=== PATIENT | female | born 1950 | race Caucasian/White ===

== ENCOUNTER 2017-12-31 19:01 | Emergency (ER) | payer MEDICARE, OTHER ==
--- NOTE | 2017-12-31 19:13 | PDOC ---
History of Present Illness - General Stated Complaint: ELEVATED BLOOD PRESSURE Time Seen by Provider: 12/31/17 19:13 - History of Present Illness Initial Comments: 12/31/17 19:14 Ms. Beasley is a 67 yo female w/ pmh of HTN, HLD, CAD, NIDDM, 3 lumbar disc herniations and a CABG (2015) who presents c/o an 8 hour history of head "pressure" that she reports started after she took her insulin this morning. She believes her blood sugar has been too low today as well as it was in the 70's and is normally around 170. When EMS arrived her BP was noted to be in the 170's as well which she reports is much higher than her normal level. The patient denies chest pain, shortness of breath, headache and dizziness. Denies fever, chills, nausea, vomit, diarrhea and constipation. Denies dysuria, frequency, urgency and hematuria. Allergies: Vancomycin Past History - Past Medical History Allergies/Adverse Reactions: Allergies Allergy/AdvReac Type Severity Reaction Status Date / Time vancomycin AdvReac Mild Itching Verified 09/07/16 17:09 Home Medications: Ambulatory Orders Aspirin Coated [Ecotrin -] 81 mg PO DAILY #0 tablet.ec 07/09/13 Atorvastatin Ca [Lipitor] 80 mg PO HS 04/02/16 Gabapentin [Neurontin] 600 mg PO BID 04/02/16 Insulin Aspart [Novolog] 0 unit SQ TID 04/02/16 Insulin Glargine,Hum.rec.anlog [Lantus Solostar PEN (NF)] 0 units SQ HS Metoprolol Tartrate 25 mg PO DAILY 04/02/16 Cephalexin [Keflex] 500 mg PO BID #10 capsule 09/07/16 Diazepam [Valium] 2 mg PO TID PRN #14 tablet MDD 12mg 09/07/16 Naproxen [Naprosyn -] 500 mg PO BID PRN #14 tablet 09/07/16 Cephalexin [Keflex] 500 mg PO BID #14 capsule 12/31/17 Cardiac Disorders: Yes (Open heart sx 11/2015.) Diabetes: Yes HTN: Yes Hypercholesterolemia: Yes Kidney Stones: No - Surgical History Appendectomy: Yes Cardiac Surgery: Yes (3 vessel CABG 12/08/15) Cholecystectomy: Yes - Immunization History Immunization Up to Date: Yes - Suicide/Smoking/Psychosocial Hx Smoking Status: Yes Smoking History: Former smoker Have you smoked in the past 12 months: No Number of Cigarettes Smoked Daily: 20 If you are a former smoker, when did you quit?: 2 YRS 'Breaking Loose' booklet given: 01/06/16 Hx Alcohol Use: No Drug/Substance Use Hx: No Substance Use Type: None Hx Substance Use Treatment: No Review of Systems - Review of Systems Comments:: 12/31/17 20:22 GENERAL/CONSTITUTIONAL: No fever or chills. No weakness. HEAD, EYES, EARS, NOSE AND THROAT: +Head "pressure" as described CARDIOVASCULAR: No chest pain or shortness of breath RESPIRATORY: No cough, wheezing, or hemoptysis. GASTROINTESTINAL: No nausea, vomiting, diarrhea or constipation. GENITOURINARY: No dysuria, frequency, or change in urination. MUSCULOSKELETAL: No joint or muscle swelling or pain. No neck or back pain. SKIN: No rash NEUROLOGIC: No headache, vertigo, loss of consciousness, or change in strength/ sensation. ENDOCRINE: No increased thirst. No abnormal weight change HEMATOLOGIC/LYMPHATIC: No anemia, easy bleeding, or history of blood clots. ALLERGIC/IMMUNOLOGIC: No hives or skin allergy. *Physical Exam - Physical Exam Comments: 12/31/17 20:23 GENERAL: Awake, alert, and fully oriented, in no acute distress HEAD: No signs of trauma, normocephalic, atraumatic EYES: PERRLA, EOMI, sclera anicteric, conjunctiva clear ENT: Auricles normal inspection, hearing grossly normal, nares patent, oropharynx clear without exudates. Moist mucosa NECK: Normal ROM, supple, no lymphadenopathy, JVD, or masses LUNGS: No distress, speaks full sentences, clear to auscultation bilaterally HEART: Regular rate and rhythm, normal S1 and S2, no murmurs, rubs or gallops, peripheral pulses normal and equal bilaterally. ABDOMEN: Soft, nontender, normoactive bowel sounds. No guarding, no rebound. No masses EXTREMITIES: Normal inspection, Normal range of motion, no edema. No clubbing or cyanosis. NEUROLOGICAL: Cranial nerves II through XII grossly intact. Normal speech, normal gait, no focal sensorimotor deficits SKIN: Warm, Dry, normal turgor, no rashes or lesions noted. ED Treatment Course - LABORATORY CBC & Chemistry Diagram: 12/31/17 20:22 12/31/17 20:22 Medical Decision Making - Medical Decision Making 12/31/17 20:50 Ms. Beasley is a 67 yo female w/ pmh as described presenting w/ elevated BP. Upon re-interview patient admits to eating corned beef earlier today which she believes may have elevated her BP. 12/31/17 21:26 UA positive for 3+ leukocytes - ABX begun for treatment in ED w/ Rx sent to patient's pharmacy. Head CT negative for acute pathology. CXR likewise negative. Labs otherwise unconcerning as below. Will d/c to home with instructions to f/u as needed for further symptoms. Patient verbalized understanding and agreement of plan and will comply. Laboratory Results - last 24 hr 12/31/17 12/31/17 12/31/17 20:22 20:22 20:22 WBC 9.0 RBC 5.26 H Hgb 14.2 Hct 43.0 MCV 81.7 MCH 27.0 MCHC 33.1 RDW 13.8 Plt Count 315 MPV 8.2 Neutrophils % 56.0 Lymphocytes % 36.1 Monocytes % 6.1 Eosinophils % 1.2 Basophils % 0.6 Sodium 142 Potassium 3.7 Chloride 106 Carbon Dioxide 30 Anion Gap 6 L BUN 14 Creatinine 0.8 Creat Clearance w eGFR > 60 Random Glucose 72 L Calcium 8.6 Total Bilirubin 0.8 D AST 21 ALT 28 Alkaline Phosphatase 166 H Creatine Kinase 213 H Creatine Kinase Index 1.1 CK-MB (CK-2) 2.347 Troponin I < 0.02 Total Protein 7.2 Albumin 3.4 Urine Color Urine Appearance Urine pH Ur Specific Harrison Urine Protein Urine Glucose (UA) Urine Ketones Urine Blood Urine Nitrite Urine Bilirubin Urine Urobilinogen Ur Leukocyte Esterase Urine WBC (Auto) Urine RBC (Auto) Ur Epithelial Cells 12/31/17 01/01/18 20:44 02:14 WBC RBC Hgb Hct MCV MCH MCHC RDW Plt Count MPV Neutrophils % Lymphocytes % Monocytes % Eosinophils % Basophils % Sodium Potassium Chloride Carbon Dioxide Anion Gap BUN Creatinine Creat Clearance w eGFR Random Glucose Calcium Total Bilirubin AST ALT Alkaline Phosphatase Creatine Kinase 193 H Creatine Kinase Index 0.9 CK-MB (CK-2) 1.913 Troponin I < 0.02 Total Protein Albumin Urine Color Ltyellow Urine Appearance Clear Urine pH 8.0 D Ur Specific Harrison 1.008 Urine Protein Negative Urine Glucose (UA) Negative Urine Ketones Negative Urine Blood Negative Urine Nitrite Negative Urine Bilirubin Negative Urine Urobilinogen Negative Ur Leukocyte Esterase 3+ H Urine WBC (Auto) 64 Urine RBC (Auto) 1 Ur Epithelial Cells Rare *DC/Admit/Observation/Transfer Diagnosis at time of Disposition: Urinary tract infection Qualifiers: Urinary tract infection type: site unspecified Hematuria presence: with hematuria Qualified Code(s): N39.0 - Urinary tract infection, site not specified - Discharge Dispostion Disposition: HOME - Prescriptions Prescriptions: Cephalexin [Keflex] 500 mg PO BID #14 capsule - Referrals Referrals: Salma Reddy [Primary Care Provider] - - Patient Instructions Printed Discharge Instructions: DI for Urinary Tract Infection (UTI) Additional Instructions: Please return if any pain, fever, or other concerning symptoms. Take prescription as written. Follow-up with your primary care provider for further evaluation as needed. - Post Discharge Activity
[2017-12-31 20:02] VITALS: BMI 29.9
[2017-12-31] MEDS ORDERED: ACETAMINOPHEN 500 MG TABLET (FP) PO ONE (20:16)
[2017-12-31] MEDS ORDERED: ACETAMINOPHEN 325 MG TABLET (FP) ONE (20:20)
[2017-12-31] MEDS ORDERED: NITROGLYCERIN SUBLINGUAL 1/150 0.4 MG TAB SL ONE (20:20)
[2017-12-31] MEDS ORDERED: NITROGLYCERIN SUBLINGUAL 1/150 0.4 MG TAB ONE (20:45)
[2017-12-31] MEDS ORDERED: VALSARTAN 40 MG TABLET (FP) PO ONE (20:46)
--- NOTE | 2017-12-31 20:51 | PDOC ---
Attending Attestation - Resident Resident Name: Cj Gabriel - ED Attending Attestation I have performed the following: I have examined & evaluated the patient, The case was reviewed & discussed with the resident, I agree w/resident's findings & plan - HPI HPI: 12/31/17 20:44 Pt comes with HTN and fever and headache. She was unaware that she is febrile. - Physicial Exam PE: 12/31/17 20:45 Agree with resident. Bilat BP is equal 12/31/17 20:52 Temp is normal - Medical Decision Making 12/31/17 20:[address] head pending. 12/31/17 22:40 Patient Name: ISABEL BRYANT THIS IS A PRELIMINARY REPORT FROM [facility] DATE OF SERVICE: 2017-12-31 21:01:51 IMAGES: 141 EXAM: CT head without contrast HISTORY: 67 year old female hypertension, headache. COMPARISON: None. FINDINGS: No acute intracranial hemorrhage mass effect or midline shift. Templeton-white differentiation is maintained. Ventricles sulci and basilar cisterns appear unremarkable. Calvarium is intact. The sinuses and mastoid air cells are clear. IMPRESSION No acute intracranial hemorrhage mass effect or midline shift. This CT exam was performed using one or more of the following dose reduction techniques: automated exposure control, adjustment of the mA and/or kV according to patient size, use of iterative reconstruction technique. THIS DOCUMENT HAS BEEN ELECTRONICALLY SIGNED 12/31/17 22:51 Pt comes with uncontrolled HTN and headache. SHe is compliant with her meds and she is not sure why this is happening. She is warm to the touch, but rectal temp is normal. Pt has normal labs and a normal EKG and a normal head CT scan. 01/01/18 02:05 CT head nornal; CXR normal (pt has sternal wires from previous CABG abd GB cassidy from prior cholecystectomy. Labs normal; pt stable to go home.
[2017-12-31 20:58] LABS: URINE APPEARANCE CLEAR; URINE BILIRUBIN NEGATIVE (NEGATIVE); URINE BLOOD NEGATIVE (NEGATIVE); URINE COLOR LTYELLOW; URINE GLUCOSE (UA) NEGATIVE (NEGATIVE); URINE KETONE NEGATIVE (NEGATIVE); URINE NITRITE NEGATIVE (NEGATIVE); URINE PROTEIN NEGATIVE (NEGATIVE); URINE UROBILINOGEN NEGATIVE mg/dL (0.2-1.0)
[2017-12-31 21:00] LABS: BASO % 0.6 % (0-2.0); EOS % 1.2 % (0-4.5); HEMOGLOBIN 14.2 GM/dL (10.7-15.3); LYMPH % 36.1 % (8-40); MCHC 33.1 g/dl (32.0-36.0); MEAN CELL VOLUME 81.7 fl (80-96); MEAN PLT VOLUME 8.2 fl (7.5-11.1); MONO % 6.1 % (3.8-10.2); PLATELET COUNT 315 K/MM3 (134-434); RBC 5.26 M/mm3 (3.60-5.2); RDW 13.8 % (11.6-15.6)
[2017-12-31 21:05] LABS: URINE LEUK ESTERASE 3+ (NEGATIVE)
[2017-12-31] MEDS ORDERED: cefTRIAXone 1 GM/50 ML BAG (PRE-DOCKED) IVPB ONE (21:07)
[2017-12-31 21:08] LABS: EPI CELLS RARE /HPF (FEW)
[2017-12-31] MEDS ORDERED: VALSARTAN 80 MG TABLET (UD) ONE (21:12)
[2017-12-31 21:34] LABS: ALBUMIN 3.4 g/dl (3.4-5.0); ANION GAP 6 (8-16); BLOOD UREA NITROGEN 14 mg/dL (7-18); CALCIUM 8.6 mg/dL (8.5-10.1); CHLORIDE 106 mmol/L (98-107); CO2 30 mmol/L (21-32); CREATININE 0.8 mg/dL (0.55-1.02); GLUCOSE,RANDOM 72 mg/dL (74-106); POTASSIUM 3.7 mmol/L (3.5-5.1); SGOT/AST 21 U/L (15-37); SGPT/ALT 28 U/L (12-78); SODIUM 142 mmol/L (136-145)
[2017-12-31 21:35] LABS: ALK PHOS 166 U/L (45-117); BILIRUBIN,TOTAL 0.8 mg/dL (0.2-1.0); TOT PROT 7.2 g/dl (6.4-8.2)
[2017-12-31] MEDS ORDERED: CEFTRIAXONE 1 GM/50 ML BAG ONE (23:11)
[2018-01-01] MEDS ORDERED: IBUPROFEN 600 MG TABLET (FP) PO ONE ×2 (02:16→02:28)
[2018-01-01 02:33] VITALS: BP 136/70; PULSE 74; TEMP 98.1
--- NOTE | 2018-01-01 23:17 | EKG ---
Test Reason : Blood Pressure : / mmHG Vent. Rate : 081 BPM Atrial Rate : 081 BPM P-R Int : 166 ms QRS Dur : 134 ms QT Int : 420 ms P-R-T Axes : 060 022 048 degrees QTc Int : 487 ms NORMAL SINUS RHYTHM POSSIBLE LEFT ATRIAL ENLARGEMENT RIGHT BUNDLE BRANCH BLOCK ABNORMAL ECG WHEN COMPARED WITH ECG OF 21-JUN-2016 21:08, CRITERIA FOR ANTERIOR INFARCT ARE NO LONGER PRESENT NO SIGNIFICANT CHANGE WAS FOUND Confirmed by GHASSAN IBARRA, JAYDEN ([id number]) on 01/01/2018 11:17:44 PM Referred By: Confirmed By:JAYDEN FERRELL MD
== END 2018-01-01 03:14 | disposition home or self-care (01) ==
LOC: JER 19:01
DX: N39.0 Urinary tract infection, site not specified (principal); I25.810 Atherosclerosis of coronary artery bypass graft(s) without angina pectoris; I10 Essential (primary) hypertension; Z95.1 Presence of aortocoronary bypass graft; E11.9 Type 2 diabetes mellitus without complications; Z79.4 Long term (current) use of insulin; E78.00 Pure hypercholesterolemia, unspecified; M51.26 Other intervertebral disc displacement, lumbar region
CPT/HCPCS: 36415; 70450-TC; 71046-TC-FY; 80053; 81003; 81015; 82550; 82553; 84484; 85025; 93005; 93010; 96374; 99282-25

== ENCOUNTER 2019-03-28 11:42 | Emergency (ER) | payer MEDICARE, OTHER ==
[2019-03-28 12:05] VITALS: BP 146/76; PULSE 75; TEMP 97.8; BMI 28.3
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
[2019-03-28] MEDS ORDERED: IBUPROFEN 600 MG TABLET (FP) PO ONE ×2 (12:34→12:38)
== END 2019-03-28 13:43 | disposition home or self-care (01) ==
LOC: JERFT 11:42
PROC: 2W3DX1Z Immobilization of Left Lower Arm using Splint (ICD-10-PCS; principal; 2019-03-28)
DX: M79.642 Pain in left hand (principal); M25.532 Pain in left wrist; V03.10XA Pedestrian on foot injured in collision with car, pick-up truck or van in traffic accident, initial encounter; Y92.414 Local residential or business street as the place of occurrence of the external cause; Y93.89 Activity, other specified; Y99.8 Other external cause status; I25.10 Atherosclerotic heart disease of native coronary artery without angina pectoris; I10 Essential (primary) hypertension; Z95.1 Presence of aortocoronary bypass graft; E78.00 Pure hypercholesterolemia, unspecified; E11.9 Type 2 diabetes mellitus without complications; Z79.84 Long term (current) use of oral hypoglycemic drugs
CPT/HCPCS: 73110-TC-LT-FY; 73130-TC-LT-FY; 99281-25

== ENCOUNTER 2020-06-23 10:35 | Emergency (ER) | payer MEDICARE, OTHER ==
[2020-06-23] MEDS ORDERED: CYCLOBENZAPRINE HCL 10 MG TABLET (FP) PO ONE (11:04)
[2020-06-23] MEDS ORDERED: KETOROLAC TROMETHAMINE 30 MG/1 ML VIAL IM ONE (11:04)
[2020-06-23] MEDS ORDERED: CYCLOBENZAPRINE HCL 10 MG TABLET (FP) ONE (11:10)
[2020-06-23] MEDS ORDERED: KETOROLAC TROMETHAMINE 30 MG/1 ML VIAL ONE (11:10)
[2020-06-23 11:13] VITALS: BMI 32.1
--- NOTE | 2020-06-23 11:28 | PDOC ---
History of Present Illness - General Chief Complaint: Pain, Acute Stated Complaint: BACK PAIN Time Seen by Provider: 06/23/20 10:49 History Source: Patient Exam Limitations: No Limitations - History of Present Illness Initial Comments: 06/23/20 11:23 Patient is a 69-year-old female with a history of hypertension, diabetes, three- vessel CABG who presents to the ED with right mid back pain that she has had for the last 3 days. She states that she remembers turning in a certain direction when the pain started. She states it is deep inside and feels sharp in nature. She is having trouble getting comfortable particularly while laying down. She denies any dysuria or hematuria. She denies any frequency, urgency, hesitancy. She denies any fevers or chills. She denies any chest pain or shortness of breath. She has taken Advil and Aleve over the past 3 days with some relief of her symptoms. She states the pain has returned. She did not take anything today. Past History - Medical History Allergies/Adverse Reactions: Allergies Allergy/AdvReac Type Severity Reaction Status Date / Time vancomycin AdvReac Mild Itching Verified 09/07/16 17:09 Home Medications: Ambulatory Orders Aspirin Coated [Ecotrin -] 81 mg PO DAILY #0 tablet.ec 07/09/13 Atorvastatin Ca [Lipitor] 80 mg PO HS 04/02/16 Gabapentin [Neurontin] 600 mg PO BID 04/02/16 Insulin Aspart [Novolog] 0 unit SQ TID 04/02/16 Insulin Glargine,Hum.rec.anlog [Lantus Solostar PEN (NF)] 0 units SQ HS 04/02/16 Metoprolol Tartrate 25 mg PO DAILY 04/02/16 Cephalexin [Keflex] 500 mg PO BID #10 capsule 09/07/16 Diazepam [Valium] 2 mg PO TID PRN #14 tablet MDD 12mg 09/07/16 Naproxen [Naprosyn -] 500 mg PO BID PRN #14 tablet 09/07/16 Cephalexin [Keflex] 500 mg PO BID #14 capsule 12/31/17 Acetaminophen [Tylenol -] 1,000 mg PO Q6H #30 tablet 03/28/19 Cephalexin [Keflex] 500 mg PO BID #14 capsule 06/23/20 Cardiac Disorders: Yes (Open heart sx 11/2015.) COPD: No Diabetes: Yes HTN: Yes Hypercholesterolemia: Yes Kidney Stones: No - Surgical History Appendectomy: Yes Cardiac Surgery: Yes (3 vessel CABG 12/08/15) Cholecystectomy: Yes - Reproductive History Is Patient Now?: No - Immunization History Immunization Up to Date: Yes - Psycho-Social/Smoking History Smoking Status: Yes Smoking History: Former smoker Have you smoked in the past 12 months: No Number of Cigarettes Smoked Daily: 20 If you are a former smoker, when did you quit?: 2 YRS Information on smoking cessation initiated: No 'Breaking Loose' booklet given: 01/06/16 - Substance Abuse Hx (Audit-C & DAST Scrn) How often the patient has a drink containing alcohol: Never Score: In Men: 4 or > Positive; In Women: 3 or > Positive: 0 Screen Result (Pos requires Nsg. Audit-10AR): Negative In the last yr the pt used illegal drug/Rx for NonMed reason: No Score: Yes response is considered Positive: 0 Screen Result (Positive result requires Nsg. DAST-10): Negative Review of Systems - Review of Systems Comments:: 06/23/20 11:24 - Review of Systems Able to Perform ROS?: Yes Constitutional: No: Fever, Chills, Loss of Appetite, Night Sweats, Weakness HEENTM: No: Eye Pain, Vision changes, Ear Pain, Throat Pain, Throat Swelling, Mouth Pain, Difficulty Swallowing Respiratory: No: Cough, Shortness of Breath, Wheezing, Sputum Production Cardiac (ROS): No: Chest Pain, Chest Tightness, Palpitations, Irregular Heart Beat, Edema ABD/GI: No: Nausea, Vomiting, Abdominal Pain, Diarrhea : No Dysuria, No Hematuria, No Frequency, No Urgency, no vaginal symptoms Musculoskeletal: No: Muscle Pain, Joint Pain, Muscle Weakness, Neck Pain; positive: Right-sided mid back pain Integumentary: No: Lesions, Rash Neurological: No: Headache, Numbness, Tingling, Weakness, Speech Difficulties *Physical Exam - Vital Signs Last Vital Signs Temp Pulse Resp BP Pulse Ox 82 16 180/72 H 99 06/23/20 10:37 06/23/20 10:37 06/23/20 10:37 06/23/20 10:37 - Physical Exam 06/23/20 11:25 - Physical Exam General Appearance: Nourished, Appropriately Dressed, No Distress HEENT: EOMI, Normal Voice, Hearing Grossly Normal Neck: Supple, No Lymphadenopathy (R), No Lymphadenopathy (L), No Rigidity, No Decreased range of motion Respiratory/Chest: Lungs Clear, Normal Breath Sounds. No Respiratory Distress, No Accessory Muscle Use Cardiovascular: Regular Rhythm, Regular Rate, S1, S2 Gastrointestinal/Abdominal: Normal Bowel Sounds, Soft. Non-tender, No Guarding, No Rebound, No Rigidity Musculoskeletal: Normal Inspection. No Decreased Range of Motion; moderate right mid paraspinal back pain which is reproducible to palpation. No CVA tenderness bilaterally. No midline back tenderness to palpation. Tenderness to the sacral region to palpation (of note: Which patient states is from an old injury) Extremity: Normal Capillary Refill, Normal Inspection Integumentary: Normal Color, Dry. No Rash Neurologic: entertainment usher II-XII NML intact, Fully Oriented, Alert, Normal Mood/Affect, Normal Response ED Treatment Course - LABORATORY CBC & Chemistry Diagram: 06/23/20 13:43 06/23/20 13:43 - RADIOLOGY Radiology Studies Ordered: Category Date Time Status SPINE-LUMBAR ONLY [RAD] Stat Radiology 06/23/20 11:03 Ordered SPINE-THORACIC [RAD] Stat Radiology 06/23/20 11:03 Ordered - Medications Given in the ED: ED Medications Discontinued Medications Generic Name Dose Route Start Last Admin Trade Name Freq PRN Reason Stop Dose Admin Cyclobenzaprine HCl 10 mg 06/23/20 11:04 06/23/20 11:17 Flexeril - PO 06/23/20 11:05 10 mg ONCE ONE Administration Ketorolac Tromethamine 30 mg 06/23/20 11:04 06/23/20 11:17 Toradol Injection - IM 06/23/20 11:05 30 mg ONCE ONE Administration Medical Decision Making - Medical Decision Making 06/23/20 11:26 Assessment: Patient is a 69-year-old female with history of hypertension, diabetes, three-vessel CABG who presents with right mid back pain for 3 days. Plan: -UA and urine culture ordered -Thoracic and lumbar spine x-rays ordered -Toradol and Flexeril given -Will reassess 06/23/20 12:45 The patient is still having pain. She is pending her x-ray reads and UA results. 1 Percocet ordered. 06/23/20 14:01 Patient pain has not subsided even with the Percocet. She has evidence of a UTI, possibly a sending. Will order labs for further evaluation. Will give 1g of ceftriaxone in the ED now. 06/23/20 15:12 Patient is got her ceftriaxone. We will send Keflex to her pharmacy. The patient does admit to not taking her blood pressure medication today and she will take it when she gets home. The patient will follow up with her primary doctor within 1 to 2 days for repeat evaluation. She understands and agrees with this treatment plan and she is stable for discharge. Discharge - Discharge Information Problems reviewed: Yes Clinical Impression/Diagnosis: UTI (urinary tract infection) Qualifiers: Urinary tract infection type: acute cystitis Hematuria presence: without hematuria Qualified Code(s): N30.00 - Acute cystitis without hematuria Condition: Stable Disposition: HOME - Additional Discharge Information Prescriptions: Cephalexin [Keflex] 500 mg PO BID #14 capsule - Follow up/Referral Referrals: Maurisio Reddy MD [Primary Care Provider] - Call tomorrow - Patient Discharge Instructions Patient Printed Discharge Instructions: DI for Urinary Tract Infection (UTI) Additional Instructions: Take the antibiotics as prescribed and complete the entire course even if you are feeling better. Take Tylenol or ibuprofen for pain. Get plenty of rest and drink plenty of fluids. Be sure to follow-up with your primary doctor within 1 to 2 days for repeat evaluation. - Post Discharge Activity
[2020-06-23 13:07] LABS: EPI CELLS 9 /uL (0-25.1); HYALINE CASTS 5 /uL (0-3.1); PH,URINE 5.5 (5.0-8.0); URINE APPEARANCE CLOUDY; URINE BILIRUBIN NEGATIVE (NEGATIVE); URINE COLOR YELLOW; URINE GLUCOSE (UA) NEGATIVE (NEGATIVE); URINE KETONE NEGATIVE (NEGATIVE); URINE LEUK ESTERASE 2+ (NEGATIVE); URINE NITRITE POSITIVE (NEGATIVE); URINE PROTEIN 1+ (NEGATIVE); URINE RBC 7 /uL (0-23.9); URINE WBC 178 /uL (0-25.8)
[2020-06-23] MEDS ORDERED: CEFTRIAXONE 1,000 MG in DEXTROSE 5%-WATER - 50 ML IVPB ONE (14:04)
[2020-06-23 14:10] LABS: BASO % 0.7 % (0-2.0); EOS % 0.8 % (0-4.5); HEMATOCRIT 46.4 % (32.4-45.2); HEMOGLOBIN 15.4 GM/dL (10.7-15.3); LYMPH % 32.4 % (8-40); MCH 27.5 pg (25.7-33.7); MCHC 33.1 g/dl (32.0-36.0); MEAN CELL VOLUME 83.1 fl (80-96); MONO % 6.4 % (3.8-10.2); NEUT % 59.7 % (42.8-82.8); PLATELET COUNT 306 K/MM3 (134-434); RBC 5.59 M/mm3 (3.60-5.2); RDW 14.5 % (11.6-15.6)
[2020-06-23 14:32] LABS: ALBUMIN 3.6 g/dl (3.4-5.0); ALK PHOS 157 U/L (45-117); ANION GAP 7 MMOL/L (8-16); BILIRUBIN,TOTAL 0.6 mg/dL (0.2-1); BLOOD UREA NITROGEN 11.7 mg/dL (7-18); CALCIUM 9.3 mg/dL (8.5-10.1); CHLORIDE 106 mmol/L (98-107); CO2 27 mmol/L (21-32); CREATININE 0.8 mg/dL (0.55-1.3); GLUCOSE,RANDOM 110 mg/dL (74-106); POTASSIUM 3.9 mmol/L (3.5-5.1); SGOT/AST 27 U/L (15-37); SGPT/ALT 42 U/L (13-61); SODIUM 140 mmol/L (136-145); TOT PROT 7.6 g/dl (6.4-8.2)
[2020-06-23] MEDS ORDERED: CEFTRIAXONE 1 GM/50 ML BAG ONE (14:49)
[2020-06-23 15:27] VITALS: BP 195/80; PULSE 72; TEMP 98.2
== END 2020-06-23 15:24 | disposition home or self-care (01) ==
LOC: JER 10:35
PROC: 3E033GC Introduction of Other Therapeutic Substance into Peripheral Vein, Percutaneous Approach (ICD-10-PCS; principal; 2020-06-23)
PROC: 3E023GC Introduction of Other Therapeutic Substance into Muscle, Percutaneous Approach (ICD-10-PCS; principal; 2020-06-23)
DX: N30.00 Acute cystitis without hematuria (principal)
CPT/HCPCS: 36415; 72070-TC-FY; 72100-TC-FY; 80053; 81003; 82550; 82553; 84484; 85025; 87086; 87186; 99284-25

== ENCOUNTER 2020-10-22 23:49 | Emergency (ER) | payer MEDICARE, OTHER ==
[2020-10-23 00:28] VITALS: BP 143/59; PULSE 75; TEMP 98; BMI 30.1
[2020-10-23] MEDS ORDERED: LIDOCAINE 5% TOPICAL PATCH TP ONE (01:38)
[2020-10-23] MEDS ORDERED: ACETAMINOPHEN 325 MG TABLET (FP) PO ONE (01:38)
[2020-10-23] MEDS ORDERED: ACETAMINOPHEN 325 MG TABLET (FP) ONE (01:49)
[2020-10-23] MEDS ORDERED: LIDOCAINE 5% TOPICAL PATCH ONE (01:49)
[2020-10-23 02:03] LABS: BASO % 0.6 % (0-2.0); EOS % 1.5 % (0-4.5); HEMATOCRIT 44.4 % (32.4-45.2); HEMOGLOBIN 14.5 GM/dL (10.7-15.3); LYMPH % 36.6 % (8-40); MCH 27.2 pg (25.7-33.7); MCHC 32.7 g/dl (32.0-36.0); MEAN CELL VOLUME 83.3 fl (80-96); MEAN PLT VOLUME 9.3 fl (7.5-11.1); MONO % 7.4 % (3.8-10.2); NEUT % 53.9 % (42.8-82.8); PLATELET COUNT 277 K/MM3 (134-434); RBC 5.34 M/mm3 (3.60-5.2); WHITE BLOOD COUNT 7.6 K/mm3 (4.0-10.0)
[2020-10-23 02:06] LABS: URINE APPEARANCE CLEAR; URINE BILIRUBIN NEGATIVE (NEGATIVE); URINE COLOR YELLOW; URINE GLUCOSE (UA) NEGATIVE (NEGATIVE); URINE KETONE NEGATIVE (NEGATIVE); URINE LEUK ESTERASE NEGATIVE (NEGATIVE); URINE NITRITE NEGATIVE (NEGATIVE); URINE PROTEIN NEGATIVE (NEGATIVE)
[2020-10-23 02:21] LABS: POTASSIUM 3.7 mmol/L (3.5-5.1)
[2020-10-23 02:23] LABS: ALBUMIN 3.6 g/dl (3.4-5.0); BLOOD UREA NITROGEN 11.2 mg/dL (7-18); CALCIUM 8.7 mg/dL (8.5-10.1)
[2020-10-23 02:26] LABS: CREATININE 0.7 mg/dL (0.55-1.3)
[2020-10-23 02:28] LABS: BILIRUBIN,TOTAL 0.4 mg/dL (0.2-1)
[2020-10-23] MEDS ORDERED: KETOROLAC TROMETHAMINE 60 MG/2 ML VIAL IM ONE (03:19)
[2020-10-23] MEDS ORDERED: KETOROLAC TROMETHAMINE 60 MG/2 ML VIAL ONE (03:47)
[2020-10-23] MEDS ORDERED: LIDOCAINE PATCH REMOVAL MC SCH (22:00)
== END 2020-10-23 03:45 | disposition left against medical advice (07) ==
LOC: JER 23:49
PROC: 3E0233Z Introduction of Anti-inflammatory into Muscle, Percutaneous Approach (ICD-10-PCS; principal; 2020-10-23)
DX: M54.9 Dorsalgia, unspecified (principal)
CPT/HCPCS: 36415; 72128-TC; 72131-TC; 80053; 81003; 85025; 87086; 96372; 99285-25

== ENCOUNTER 2020-10-24 13:04 | Emergency (ER) | payer MEDICARE, OTHER ==
[2020-10-24 13:55] VITALS: BMI 30.1
[2020-10-24] MEDS ORDERED: LIDOCAINE 5% TOPICAL PATCH TP ONE (14:29)
[2020-10-24] MEDS ORDERED: KETOROLAC TROMETHAMINE 15 MG/ML VIAL IM ONE (14:29)
[2020-10-24] MEDS ORDERED: METHOCARBAMOL 500 MG TABLET PO ONE (14:54)
[2020-10-24] MEDS ORDERED: METHOCARBAMOL 500 MG TABLET ONE (15:15)
[2020-10-24] MEDS ORDERED: LIDOCAINE 5% TOPICAL PATCH ONE (15:16)
[2020-10-24] MEDS ORDERED: KETOROLAC TROMETHAMINE 30 MG/1 ML VIAL ONE (15:16)
[2020-10-24 16:56] LABS: PH,URINE 5.5 (5.0-8.0); URINE APPEARANCE Clear; URINE BILIRUBIN Negative (NEGATIVE); URINE COLOR Yellow; URINE GLUCOSE (UA) Negative (NEGATIVE); URINE KETONE Trace (NEGATIVE); URINE LEUK ESTERASE Trace (NEGATIVE); URINE NITRITE Negative (NEGATIVE); URINE PROTEIN Negative (NEGATIVE); URINE UROBILINOGEN 0.2 mg/dL (0.2-1.0)
[2020-10-24 17:19] VITALS: BP 161/69; PULSE 68; TEMP 97.9
[2020-10-24] MEDS ORDERED: LIDOCAINE PATCH REMOVAL MC SCH (22:00)
== END 2020-10-24 17:18 | disposition home or self-care (01) ==
LOC: JER 13:04
PROC: 3E0233Z Introduction of Anti-inflammatory into Muscle, Percutaneous Approach (ICD-10-PCS; principal; 2020-10-24)
DX: M54.5 Low back pain (principal)
CPT/HCPCS: 76857; 81003; 82962; 87086; 96372; 99285-25

== ENCOUNTER 2021-06-29 12:21 | Emergency (ER) | payer MEDICARE, OTHER ==
[2021-06-29 12:39] VITALS: BP 157/73; PULSE 83; TEMP 98.1; BMI 32.2
[2021-06-29] MEDS ORDERED: KETOROLAC TROMETHAMINE 60 MG/2 ML VIAL IM ONE (13:01)
[2021-06-29] MEDS ORDERED: ACETAMINOPHEN 500 MG TABLET (FP) PO ONE (13:07)
[2021-06-29] MEDS ORDERED: ACETAMINOPHEN 500 MG TABLET (FP) ONE (13:17)
== END 2021-06-29 14:05 | disposition home or self-care (01) ==
LOC: JERFT 12:21
PROC: 3E023GC Introduction of Other Therapeutic Substance into Muscle, Percutaneous Approach (ICD-10-PCS; principal; 2021-06-29)
DX: M54.5 Low back pain (principal)
CPT/HCPCS: 99284-25

== ENCOUNTER 2022-03-27 14:35 | Emergency (ER) | payer MEDICARE, OTHER ==
[2022-03-27 15:04] VITALS: BMI 32.3
[2022-03-27 16:16] LABS: BASO % 0.6 % (0-2.0); EOS % 0.5 % (0-4.5); HEMATOCRIT 45.3 % (32.4-45.2); HEMOGLOBIN 15.3 GM/dL (10.7-15.3); LYMPH % 19.7 % (8-40); MCH 28.1 pg (25.7-33.7); MCHC 33.7 g/dl (32.0-36.0); MEAN CELL VOLUME 83.4 fl (80-96); MEAN PLT VOLUME 9.1 fl (7.5-11.1); MONO % 5.7 % (3.8-10.2); NEUT % 73.5 % (42.8-82.8); PLATELET COUNT 284 10^3/uL (134-434); RBC 5.43 M/mm3 (3.60-5.2); RDW 13.7 % (11.6-15.6); WHITE BLOOD COUNT 7.7 K/mm3 (4.0-10.0)
[2022-03-27] MEDS ORDERED: ACETAMINOPHEN 500 MG TABLET (FP) PO ONE (16:38)
[2022-03-27 16:40] LABS: CALCIUM 9.2 mg/dL (8.5-10.1)
[2022-03-27 16:41] LABS: ALBUMIN 3.2 g/dl (3.4-5.0); BLOOD UREA NITROGEN 12.8 mg/dL (7-18)
[2022-03-27 16:44] LABS: CREATININE 0.9 mg/dL (0.55-1.3)
[2022-03-27 16:45] LABS: BILIRUBIN,TOTAL 0.8 mg/dL (0.2-1); TOT PROT 7.5 g/dl (6.4-8.2)
[2022-03-27 18:33] VITALS: BP 180/67; PULSE 74
[2022-03-27 18:54] LABS: CALCIUM 9.2 mg/dL (8.5-10.1)
[2022-03-27 18:56] LABS: BLOOD UREA NITROGEN 12.4 mg/dL (7-18)
[2022-03-27 18:58] LABS: CREATININE 0.8 mg/dL (0.55-1.3)
== END 2022-03-27 19:20 | disposition left against medical advice (07) ==
LOC: JER 14:35
DX: R42 Dizziness and giddiness (principal); I10 Essential (primary) hypertension
CPT/HCPCS: 36415; 80048; 80053; 84484; 85025; 93005; 93010; 99284-25

== ENCOUNTER 2022-07-01 12:23 | Emergency (ER) | payer BC, OTHER ==
[2022-07-01 12:35] VITALS: BP 180/84; PULSE 60; RESP 18; TEMP 97.8; BMI 31.2
[2022-07-01] MEDS ORDERED: KETOROLAC TROMETHAMINE 30 MG/1 ML VIAL IM ONE (12:57)
[2022-07-01] MEDS ORDERED: METHOCARBAMOL 500 MG TABLET PO ONE (12:59)
[2022-07-01] MEDS ORDERED: METHOCARBAMOL 500 MG TABLET ONE (13:23)
[2022-07-01] MEDS ORDERED: KETOROLAC TROMETHAMINE 30 MG/1 ML VIAL ONE (13:23)
[2022-07-01 14:44] LABS: PH,URINE 5.5 (5.0-8.0); URINE APPEARANCE CLEAR; URINE BILIRUBIN NEGATIVE (NEGATIVE); URINE COLOR YELLOW; URINE GLUCOSE (UA) 2+ (NEGATIVE); URINE KETONE NEGATIVE (NEGATIVE); URINE LEUK ESTERASE NEGATIVE (NEGATIVE); URINE NITRITE NEGATIVE (NEGATIVE); URINE PROTEIN NEGATIVE (NEGATIVE); URINE UROBILINOGEN 0.2 mg/dL (0.2-1.0)
[2022-07-01] MEDS ORDERED: ACETAMINOPHEN 500 MG TABLET (FP) PO ONE (16:29)
[2022-07-01] MEDS ORDERED: ACETAMINOPHEN 500 MG TABLET (FP) ONE (16:37)
== END 2022-07-01 16:43 | disposition home or self-care (01) ==
LOC: JER 12:23 → JERFT 12:23
PROC: 3E0233Z Introduction of Anti-inflammatory into Muscle, Percutaneous Approach (ICD-10-PCS; principal; 2022-07-01)
DX: M41.86 Other forms of scoliosis, lumbar region (principal); M54.50 Low back pain, unspecified
CPT/HCPCS: 72131-TC; 81003; 87086; 96372; 99285-25

== ENCOUNTER 2022-11-05 07:47 | Observation (INO) | payer BC, OTHER ==
[2022-11-05] MEDS ORDERED: ACETAMINOPHEN 1000 MG/100 ML BAG IVPB ONE (07:59)
[2022-11-05] MEDS ORDERED: ASPIRIN 81 MG CHEWABLE TABLETS PO ONE (08:03)
[2022-11-05] MEDS ORDERED: NITROGLYCERIN SUBLINGUAL 1/150 0.4 MG TAB SL ONE (08:06)
[2022-11-05] MEDS ORDERED: METOPROLOL TARTRATE 50 MG TABLET (FP) PO ONE (08:07)
[2022-11-05] MEDS ORDERED: METOPROLOL TARTRATE 50 MG TABLET (FP) ONE (08:12)
[2022-11-05] MEDS ORDERED: ASPIRIN 81 MG CHEWABLE TABLETS ONE (08:13)
[2022-11-05] MEDS ORDERED: NITROGLYCERIN SUBLINGUAL 1/150 0.4 MG TAB ONE (08:13)
[2022-11-05] MEDS ORDERED: ACETAMINOPHEN INJECTION 100 ML IVPB ONE (08:13)
[2022-11-05 08:35] LABS: VENOUS BASE EXCESS 5.6 mmol/L (-2-2)
[2022-11-05 08:41] LABS: BASO % 0.5 % (0-2.0); EOS % 1.1 % (0-4.5); HEMATOCRIT 47.7 % (32.4-45.2); HEMOGLOBIN 15.8 GM/dL (10.7-15.3); LYMPH % 33.7 % (8-40); MCH 27.5 pg (25.7-33.7); MCHC 33.2 g/dl (32.0-36.0); MEAN PLT VOLUME 8.9 fl (7.5-11.1); MONO % 5.6 % (3.8-10.2); NEUT % 59.1 % (42.8-82.8); PLATELET COUNT 265 10^3/uL (134-434); RBC 5.75 M/mm3 (3.60-5.2); RDW 13.3 % (11.6-15.6); WHITE BLOOD COUNT 6.1 K/mm3 (4.0-10.0)
[2022-11-05 08:44] LABS: EPI CELLS 13 /uL (0-25.1); HYALINE CASTS 0 /uL (0-3.1); PH,URINE 7.5 (5.0-8.0); URINE APPEARANCE CLEAR; URINE BACTERIA 179 /uL (0-1359); URINE BILIRUBIN NEGATIVE (NEGATIVE); URINE COLOR YELLOW; URINE GLUCOSE (UA) 2+ (NEGATIVE); URINE KETONE NEGATIVE (NEGATIVE); URINE LEUK ESTERASE NEGATIVE (NEGATIVE); URINE NITRITE NEGATIVE (NEGATIVE); URINE PROTEIN 1+ (NEGATIVE); URINE RBC 21 /uL (0-23.9); URINE UROBILINOGEN 0.2 mg/dL (0.2-1.0); URINE WBC 3 /uL (0-25.8)
[2022-11-05 08:48] LABS: INR 0.91 (0.83-1.09); PROTHROMBIN TIME (PATIENT) 10.5 SEC (9.7-13.0)
[2022-11-05 08:51] LABS: ACTIVATED PTT 33.1 SECONDS (25.2-36.5)
[2022-11-05 09:03] LABS: CHLORIDE 102 mmol/L (98-107); SODIUM 142 mmol/L (136-145)
[2022-11-05 09:05] LABS: CALCIUM 9.3 mg/dL (8.5-10.1)
[2022-11-05 09:06] LABS: ALBUMIN 3.4 g/dl (3.4-5.0); ANION GAP 11 MMOL/L (8-16); BLOOD UREA NITROGEN 10.6 mg/dL (7-18); CO2 28 mmol/L (21-32); LIPASE 430 U/L (73-393); MAGNESIUM 1.8 mg/dL (1.8-2.4)
[2022-11-05 09:08] LABS: CREATININE 0.9 mg/dL (0.55-1.3); SGOT/AST 18 U/L (15-37); SGPT/ALT 28 U/L (13-61)
[2022-11-05] MEDS ORDERED: MAG HYDROX/AL HYDROX/SIMETH 30 ML UNIT-DOSE CUP PO ONE (09:09)
[2022-11-05 09:10] LABS: BILIRUBIN,TOTAL 0.7 mg/dL (0.2-1); TOT PROT 7.8 g/dl (6.4-8.2)
[2022-11-05] MEDS ORDERED: ONDANSETRON 4 MG/2 ML VIAL IVPUSH ONE (09:10)
[2022-11-05] MEDS ORDERED: FAMOTIDINE 20 MG/50 ML IVPB 20 MG/50 ML MG IVPB ONE ×2 (09:10→09:11)
[2022-11-05 09:11] LABS: ALK PHOS 164 U/L (45-117)
[2022-11-05] MEDS ORDERED: ONDANSETRON 4 MG/2 ML VIAL ONE (09:11)
[2022-11-05] MEDS ORDERED: MAG HYDROX/AL HYDROX/SIMETH 30 ML UNIT-DOSE CUP ONE (09:11)
[2022-11-05 09:17] LABS: GLUCOSE,RANDOM 401 mg/dL (74-106)
[2022-11-05] MEDS ORDERED: SODIUM CHLORIDE 0.9% 500 ML INFUS.BAG IV ONE (10:07)
[2022-11-05] MEDS ORDERED: LIDOCAINE 5% TOPICAL PATCH TP ONE (10:42)
[2022-11-05] MEDS ORDERED: LIDOCAINE 5% TOPICAL PATCH ONE (10:43)
[2022-11-05] MEDS ORDERED: KETOROLAC TROMETHAMINE 15 MG/ML VIAL ONE (12:39)
[2022-11-05] MEDS ORDERED: ACETAMINOPHEN 325 MG TABLET (FP) PO PRN (12:42)
[2022-11-05] MEDS ORDERED: KETOROLAC TROMETHAMINE 15 MG/ML VIAL IVPUSH ONE (14:37)
[2022-11-05] MEDS ORDERED: INSULIN (NOVOLOG) ASPART 100 UNITS/ML 10ML VIAL ONE (17:38)
[2022-11-05] MEDS: INSULIN SLIDING SCALE (NOVOLOG) 1 VIAL SQ SCH ×2 (17:45→22:46)
[2022-11-05 18:26] VITALS: BMI 27.0
[2022-11-05] MEDS ORDERED: ATORVASTATIN CA 10 MG TABLET (FP) PO SCH (22:00)
[2022-11-05] MEDS ORDERED: ATORVASTATIN CA 80 MG TABLET (FP) PO SCH (22:00)
[2022-11-05] MEDS ORDERED: LIDOCAINE PATCH REMOVAL MC SCH (22:00)
[2022-11-05] MEDS: metFORMIN HCL 500 MG TABLET (FP) PO SCH (22:29)
[2022-11-05] MEDS: METOPROLOL TARTRATE 50 MG TABLET (FP) PO SCH (22:29)
[2022-11-05] MEDS: HEPARIN NA (PORCINE) 5,000 UNITS/ML 1ML VIAL SQ SCH (22:29)
[2022-11-06 07:04] VITALS: RESP 18
[2022-11-06 07:51] LABS: BASO % 0.4 % (0-2.0); EOS % 1.4 % (0-4.5); HEMATOCRIT 47.4 % (32.4-45.2); HEMOGLOBIN 15.6 GM/dL (10.7-15.3); LYMPH % 34.7 % (8-40); MCH 27.1 pg (25.7-33.7); MCHC 32.9 g/dl (32.0-36.0); MEAN CELL VOLUME 82.2 fl (80-96); MONO % 5.3 % (3.8-10.2); NEUT % 58.2 % (42.8-82.8); PLATELET COUNT 306 10^3/uL (134-434); RBC 5.76 M/mm3 (3.60-5.2); RDW 13.4 % (11.6-15.6); WHITE BLOOD COUNT 7.1 K/mm3 (4.0-10.0)
[2022-11-06 08:19] LABS: CALCIUM 9.1 mg/dL (8.5-10.1)
[2022-11-06 08:20] LABS: ALBUMIN 3.2 g/dl (3.4-5.0); BLOOD UREA NITROGEN 8.3 mg/dL (7-18)
[2022-11-06 08:23] LABS: CREATININE 0.8 mg/dL (0.55-1.3)
[2022-11-06 08:24] LABS: BILIRUBIN,TOTAL 0.9 mg/dL (0.2-1); TOT PROT 7.4 g/dl (6.4-8.2)
[2022-11-06] MEDS: INSULIN SLIDING SCALE (NOVOLOG) 1 VIAL SQ SCH ×3 (09:22→17:04)
[2022-11-06 09:55] VITALS: BP 156/74; PULSE 78; TEMP 98.3
[2022-11-06] MEDS: metFORMIN HCL 500 MG TABLET (FP) PO SCH (10:18)
[2022-11-06] MEDS: METOPROLOL TARTRATE 50 MG TABLET (FP) PO SCH (10:18)
[2022-11-06] MEDS: HEPARIN NA (PORCINE) 5,000 UNITS/ML 1ML VIAL SQ SCH (10:18)
[2022-11-06] MEDS ORDERED: ASPIRIN 81 MG CHEWABLE TABLETS PO SCH (12:30)
== END 2022-11-06 17:20 | disposition left against medical advice (07) ==
LOC: JER 07:47 → JERBED 10:43 → J7W 17:56
PROVIDERS: ADMIT Internal Medicine; ATTEND Internal Medicine
PROC: 3E033NZ Introduction of Analgesics, Hypnotics, Sedatives into Peripheral Vein, Percutaneous Approach (ICD-10-PCS; principal; 2022-11-05)
PROC: 3E013VG Introduction of Insulin into Subcutaneous Tissue, Percutaneous Approach (ICD-10-PCS; 2022-11-05)
PROC: 3E033NZ Introduction of Analgesics, Hypnotics, Sedatives into Peripheral Vein, Percutaneous Approach (ICD-10-PCS; 2022-11-05)
PROC: 3E033GC Introduction of Other Therapeutic Substance into Peripheral Vein, Percutaneous Approach (ICD-10-PCS; 2022-11-05)
DX: R07.9 Chest pain, unspecified (principal); R07.2 Precordial pain; E78.5 Hyperlipidemia, unspecified; I10 Essential (primary) hypertension; E11.9 Type 2 diabetes mellitus without complications; M54.9 Dorsalgia, unspecified; R42 Dizziness and giddiness; G89.29 Other chronic pain; Z88.8 Allergy status to other drugs, medicaments and biological substances
CPT/HCPCS: 0241U-QW; 36415; 71045-TC-FY; 71275-TC; 74174-TC; 76705-TC; 80053; 81003; 82010; 82150; 82803; 82962; 83690; 83735; 84484; 85025; 85610; 85730; 87086; 93005; 93010; 96365; 96372; 96375; 99285-25; G0378; J1644; Q9967

== ENCOUNTER 2023-02-11 16:35 | Observation (INO) | payer OTHER ==
[2023-02-11 17:03] VITALS: BMI 26.5
[2023-02-11] MEDS ORDERED: SODIUM CHLORIDE 0.9% 500 ML INFUS.BAG IV ONE (17:13)
[2023-02-11] MEDS ORDERED: ONDANSETRON 4 MG/2 ML VIAL IVPUSH ONE (17:13)
[2023-02-11] MEDS ORDERED: GLUCAGON 1 MG KIT IVPUSH ONE (17:14)
[2023-02-11] MEDS ORDERED: FAMOTIDINE 20 MG/50 ML IVPB 20 MG/50 ML MG IVPB ONE ×2 (17:15→17:52)
[2023-02-11] MEDS ORDERED: GlUCAGON HUMAN RECOMBINANT 1 MG/VIAL IVPUSH ONE ×2 (17:26→17:27)
[2023-02-11] MEDS ORDERED: ONDANSETRON 4 MG/2 ML VIAL ONE (17:52)
[2023-02-11] MEDS ORDERED: GLUCAGON 1 MG KIT ONE (17:52)
[2023-02-11] MEDS ORDERED: ACETAMINOPHEN INJECTION 100 ML IVPB ONE (17:52)
[2023-02-11 18:05] LABS: BASO % 0.5 % (0-2.0); EOS % 0.4 % (0-4.5); HEMATOCRIT 45.8 % (32.4-45.2); HEMOGLOBIN 15.5 GM/dL (10.7-15.3); MCH 27.5 pg (25.7-33.7); MCHC 33.8 g/dl (32.0-36.0); MEAN CELL VOLUME 81.2 fl (80-96); MEAN PLT VOLUME 8.8 fl (7.5-11.1); MONO % 4.9 % (3.8-10.2); NEUT % 77.2 % (42.8-82.8); PLATELET COUNT 299 10^3/uL (134-434); RBC 5.64 M/mm3 (3.60-5.2); RDW 13.5 % (11.6-15.6); WHITE BLOOD COUNT 10.4 K/mm3 (4.0-10.0)
[2023-02-11 18:12] LABS: INR 0.99 (0.83-1.09); PROTHROMBIN TIME (PATIENT) 11.5 SEC (9.7-13.0)
[2023-02-11 18:15] LABS: ACTIVATED PTT 30.1 SECONDS (25.2-36.5)
[2023-02-11 18:30] LABS: CALCIUM 9.7 mg/dL (8.5-10.1)
[2023-02-11 18:31] LABS: ALBUMIN 3.5 g/dl (3.4-5.0); BLOOD UREA NITROGEN 9.2 mg/dL (7-18)
[2023-02-11 18:34] LABS: CREATININE 0.7 mg/dL (0.55-1.3)
[2023-02-11 18:36] LABS: BILIRUBIN,TOTAL 0.7 mg/dL (0.2-1); TOT PROT 7.8 g/dl (6.4-8.2)
[2023-02-11] MEDS ORDERED: PANTOPRAZOLE SODIUM 40 MG VIAL IVPUSH ONE (18:39)
[2023-02-11] MEDS ORDERED: PANTOPRAZOLE SODIUM 40 MG VIAL ONE (19:00)
[2023-02-12] MEDS ORDERED: ACETAMINOPHEN 1000 MG/100 ML BAG IVPB PRN (01:57)
[2023-02-12] MEDS ORDERED: DEXTROSE 5%-0.45% SALINE 1,000 ML IV SCH (02:00)
[2023-02-12] MEDS ORDERED: METOPROLOL TARTRATE 50 MG TABLET (FP) PO SCH (02:00)
[2023-02-12] MEDS: hydrALAZINE HCL 20 MG/ML VIAL IVPUSH SCH ×3 (02:48→17:21)
[2023-02-12] MEDS: INSULIN SLIDING SCALE (NOVOLOG) 1 VIAL SQ SCH ×4 (06:47→21:30)
[2023-02-12 09:37] LABS: BASO % 0.6 % (0-2.0); EOS % 0.4 % (0-4.5); HEMATOCRIT 43.6 % (32.4-45.2); MCH 27.6 pg (25.7-33.7); MCHC 34.5 g/dl (32.0-36.0); MEAN CELL VOLUME 80.2 fl (80-96); MEAN PLT VOLUME 9.4 fl (7.5-11.1); MONO % 4.1 % (3.8-10.2); NEUT % 68.9 % (42.8-82.8); PLATELET COUNT 306 10^3/uL (134-434); RBC 5.44 M/mm3 (3.60-5.2); RDW 13.8 % (11.6-15.6); WHITE BLOOD COUNT 10.5 K/mm3 (4.0-10.0)
[2023-02-12] MEDS: PANTOPRAZOLE SODIUM 40 MG VIAL IVPUSH SCH (09:37)
[2023-02-12] MEDS: ENOXAPARIN NA (PORCINE) 40 MG/0.4 ML DISP.SYRIN SQ SCH (09:39)
[2023-02-12] MEDS ORDERED: metFORMIN HCL 500 MG TABLET (FP) PO SCH (10:00)
[2023-02-12] MEDS ORDERED: ISOSORBIDE MONONITRATE 30 MG TAB.SR.24H (FP) PO SCH (10:00)
[2023-02-12] MEDS ORDERED: ASPIRIN COATED 81 MG TABLET.EC PO SCH (10:00)
[2023-02-12] MEDS ORDERED: GABAPENTIN 100 MG CAPSULE PO SCH (10:00)
[2023-02-12 10:10] LABS: CALCIUM 8.9 mg/dL (8.5-10.1)
[2023-02-12 10:11] LABS: ALBUMIN 3.2 g/dl (3.4-5.0); BLOOD UREA NITROGEN 7.9 mg/dL (7-18)
[2023-02-12 10:14] LABS: CREATININE 0.7 mg/dL (0.55-1.3)
[2023-02-12 10:16] LABS: BILIRUBIN,TOTAL 0.8 mg/dL (0.2-1); TOT PROT 7.1 g/dl (6.4-8.2)
[2023-02-12] MEDS ORDERED: INSULIN (NOVOLOG) ASPART 100 UNITS/ML 10ML VIAL ONE ×4 (11:46→22:39)
[2023-02-12 12:17] LABS: MAGNESIUM 1.7 mg/dL (1.8-2.4)
[2023-02-12] MEDS ORDERED: DEXTROSE 5%-0.45% SALINE 1,000 ML with POTASSIUM CHLORIDE 10 MEQ IV SCH (13:31)
[2023-02-12] MEDS ORDERED: MAGNESIUM SULF 50% (8.12 MEQ/2 ML-1 GM VIAL) IVPB ONE (14:00)
[2023-02-12] MEDS ORDERED: ATORVASTATIN CA 10 MG TABLET (FP) PO SCH (22:00)
[2023-02-13] MEDS: hydrALAZINE HCL 20 MG/ML VIAL IVPUSH SCH ×2 (01:52→09:10)
[2023-02-13] MEDS ORDERED: INSULIN (NOVOLOG) ASPART 100 UNITS/ML 10ML VIAL ONE ×2 (07:22→07:32)
[2023-02-13] MEDS: INSULIN SLIDING SCALE (NOVOLOG) 1 VIAL SQ SCH ×3 (07:24→12:34)
[2023-02-13 09:51] LABS: BASO % 0.4 % (0-2.0); EOS % 0.2 % (0-4.5); HEMATOCRIT 43.9 % (32.4-45.2); HEMOGLOBIN 15.3 GM/dL (10.7-15.3); LYMPH % 24.5 % (8-40); MCH 28.5 pg (25.7-33.7); MCHC 34.8 g/dl (32.0-36.0); MEAN CELL VOLUME 81.7 fl (80-96); MEAN PLT VOLUME 9.7 fl (7.5-11.1); MONO % 5.2 % (3.8-10.2); NEUT % 69.7 % (42.8-82.8); PLATELET COUNT 298 10^3/uL (134-434); RBC 5.37 M/mm3 (3.60-5.2); RDW 13.7 % (11.6-15.6); WHITE BLOOD COUNT 10.1 K/mm3 (4.0-10.0)
[2023-02-13] MEDS ORDERED: METOPROLOL TARTRATE 25 MG TABLET (FP) PO SCH (10:00)
[2023-02-13] MEDS ORDERED: ISOSORBIDE MONONITRATE 30 MG TAB.SR.24H (FP) PO SCH (10:00)
[2023-02-13] MEDS: ENOXAPARIN NA (PORCINE) 40 MG/0.4 ML DISP.SYRIN SQ SCH (10:02)
[2023-02-13 10:20] LABS: BLOOD UREA NITROGEN 6.4 mg/dL (7-18); CALCIUM 8.8 mg/dL (8.5-10.1)
[2023-02-13] MEDS: PANTOPRAZOLE SODIUM 40 MG VIAL IVPUSH SCH (10:20)
[2023-02-13 10:21] LABS: ALBUMIN 3.2 g/dl (3.4-5.0)
[2023-02-13 10:24] LABS: CREATININE 0.8 mg/dL (0.55-1.3)
[2023-02-13 10:25] LABS: BILIRUBIN,TOTAL 1.4 mg/dL (0.2-1); TOT PROT 7.3 g/dl (6.4-8.2)
[2023-02-13 14:38] VITALS: BP 148/58; PULSE 76; RESP 18; TEMP 98.2
[2023-02-13] MEDS ORDERED: ATORVASTATIN CA 80 MG TABLET (FP) PO SCH (22:00)
[2023-02-14] MEDS ORDERED: PANTOPRAZOLE 40 MG TABLET PO SCH (10:00)
== END 2023-02-13 13:40 | disposition left against medical advice (07) ==
LOC: JER 16:35 → JERBED 18:04 → J8W 21:48 → INTOOBSV 02-12 01:54 → OBSVTOIN 02-12 01:54
PROVIDERS: ADMIT Internal Medicine; ATTEND Internal Medicine
PROC: 3E033GC Introduction of Other Therapeutic Substance into Peripheral Vein, Percutaneous Approach (ICD-10-PCS; principal; 2023-02-11)
PROC: 3E023GC Introduction of Other Therapeutic Substance into Muscle, Percutaneous Approach (ICD-10-PCS; 2023-02-11)
PROC: 3E033GC Introduction of Other Therapeutic Substance into Peripheral Vein, Percutaneous Approach (ICD-10-PCS; 2023-02-11)
PROC: 0DJ08ZZ Inspection of Upper Intestinal Tract, Via Natural or Artificial Opening Endoscopic (ICD-10-PCS; 2023-02-11)
DX: T18.128A Food in esophagus causing other injury, initial encounter (principal); E87.6 Hypokalemia; Z95.1 Presence of aortocoronary bypass graft; I25.10 Atherosclerotic heart disease of native coronary artery without angina pectoris; I10 Essential (primary) hypertension; E11.9 Type 2 diabetes mellitus without complications; Z87.891 Personal history of nicotine dependence; Z88.1 Allergy status to other antibiotic agents; Y99.8 Other external cause status
CPT/HCPCS: 0241U-QW; 36415; 70360-TC-FY; 71046-TC-FY; 80053; 82962; 83735; 85025; 85610; 85730; 86850; 86900; 86901; 88305-TC; 88341-TC; 93005; 93010; 93306-TC; 96365; 96366; 96367; 96372; 99285-25; G0378

== ENCOUNTER 2024-05-23 13:52 | Observation (INO) | payer OTHER ==
[2024-05-23] MEDS ORDERED: ACETAMINOPHEN INJECTION 100 ML IVPB ONE (15:39)
[2024-05-23 15:42] LABS: BASO % 0.4 % (0-2.0); HEMATOCRIT 42.1 % (32.4-45.2); HEMOGLOBIN 14.5 GM/dL (10.7-15.3); LYMPH % 12.4 % (8-40); MCH 27.7 pg (25.7-33.7); MCHC 34.4 g/dl (32.0-36.0); MEAN CELL VOLUME 80.6 fl (80-96); MEAN PLT VOLUME 8.2 fl (7.5-11.1); MONO % 5.2 % (3.8-10.2); PLATELET COUNT 300 10^3/uL (134-434); RBC 5.23 M/mm3 (3.60-5.2); RDW 13.2 % (11.6-15.6); WHITE BLOOD COUNT 13.3 K/mm3 (4.0-10.0)
[2024-05-23 16:05] LABS: POTASSIUM 4.6 mmol/L (3.5-5.1)
[2024-05-23 16:07] LABS: ALBUMIN 3.2 g/dl (3.4-5.0); BLOOD UREA NITROGEN 26.4 mg/dL (7-18); CALCIUM 8.9 mg/dL (8.5-10.1)
[2024-05-23 16:10] LABS: CREATININE 1.8 mg/dL (0.55-1.3)
[2024-05-23 16:11] LABS: BILIRUBIN,TOTAL 1.3 mg/dL (0.2-1); TOT PROT 7.9 g/dl (6.4-8.2)
[2024-05-23] MEDS: ACETAMINOPHEN 1000 MG/100 ML BAG IVPB ONE (17:20)
[2024-05-23] MEDS ORDERED: ASPIRIN 81 MG CHEWABLE TABLETS ONE (19:32)
[2024-05-23] MEDS ORDERED: ACETAMINOPHEN 325 MG TABLET (FP) ONE (19:32)
[2024-05-23] MEDS: ACETAMINOPHEN 500 MG TABLET (FP) PO ONE (19:35)
[2024-05-23] MEDS: ASPIRIN 81 MG CHEWABLE TABLETS PO ONE (19:35)
[2024-05-23] MEDS ORDERED: DOCUSATE SODIUM 100 MG CAPSULE (FP) PO PRN (21:53)
[2024-05-23] MEDS ORDERED: ACETAMINOPHEN 1000 MG/100 ML BAG IVPB PRN (23:30)
[2024-05-23] MEDS: SODIUM CHLORIDE 0.45% 1,000 ML IV SCH (23:42)
[2024-05-23] MEDS ORDERED: FAMOTIDINE 20 MG/50 ML IVPB 20 MG/50 ML MG IVPB ONE (23:45)
[2024-05-23] MEDS: FAMOTIDINE 20 MG/50 ML IVPB 20 MG/50 ML MG IVPB ONE (23:51)
[2024-05-23] MEDS ORDERED: INSULIN ASPART SLIDING SCALE (NOVOLOG) 1 VIAL SQ ONE (23:52)
[2024-05-23] MEDS: INSULIN ASPART SLIDING SCALE (NOVOLOG) 1 VIAL SQ SCH (23:56)
[2024-05-24] MEDS: SODIUM CHLORIDE 1,000 ML IV SCH (01:02)
[2024-05-24] MEDS: METOPROLOL TARTRATE 25 MG TABLET (FP) PO ONE (01:57)
[2024-05-24 02:45] VITALS: BMI 23.9
[2024-05-24] MEDS ORDERED: hydrALAZINE HCL 20 MG/ML VIAL IVPUSH ONE (06:33)
[2024-05-24] MEDS ORDERED: ONDANSETRON 4 MG/2 ML VIAL IVPUSH PRN (07:01)
[2024-05-24] MEDS: hydrALAZINE HCL 20 MG/ML VIAL IVPUSH ONE (07:03)
[2024-05-24] MEDS: SUCRALFATE 1 GM TABLET (FP) PO SCH (07:04)
[2024-05-24 08:21] LABS: INR 1.06 (0.83-1.09)
[2024-05-24 08:24] LABS: ACTIVATED PTT 31.3 SECONDS (25.2-36.5)
[2024-05-24 08:32] LABS: BASO % 0.4 % (0-2.0); EOS % 0.2 % (0-4.5); HEMATOCRIT 41.2 % (32.4-45.2); MCH 27.3 pg (25.7-33.7); MEAN CELL VOLUME 80.2 fl (80-96); MEAN PLT VOLUME 8.5 fl (7.5-11.1); MONO % 6.3 % (3.8-10.2); NEUT % 80.1 % (42.8-82.8); PLATELET COUNT 296 10^3/uL (134-434); RBC 5.14 M/mm3 (3.60-5.2); RDW 12.8 % (11.6-15.6); WHITE BLOOD COUNT 11.4 K/mm3 (4.0-10.0)
[2024-05-24 08:38] LABS: CHLORIDE 96 mmol/L (98-107); SODIUM 136 mmol/L (136-145)
[2024-05-24 08:47] LABS: BLOOD UREA NITROGEN 19.3 mg/dL (7-18); CO2 31 mmol/L (21-32); GLUCOSE,RANDOM 216 mg/dL (74-106); MAGNESIUM 1.6 mg/dL (1.8-2.4)
[2024-05-24 08:49] LABS: ANION GAP 10 mmol/L (4-13); POTASSIUM 2.9 mmol/L (3.5-5.1)
[2024-05-24 08:50] LABS: PHOSPHOROUS 2.7 mg/dL (2.5-4.9)
[2024-05-24 08:51] LABS: CREATININE 1.1 mg/dL (0.55-1.3)
[2024-05-24] MEDS ORDERED: GABAPENTIN 300 MG CAPSULE PO SCH (10:00)
[2024-05-24] MEDS: POTASSIUM CHLORIDE ORAL LIQUID 20 MEQ/15 ML PO ONE (10:10)
[2024-05-24] MEDS: MAGNESIUM SULFATE IN WATER 2 GM/50 ML IVPB IVPB ONE (10:10)
[2024-05-24] MEDS: KCL 10 MEQ IVPB 10 MEQ/100 ML INFUS.BAG IVPB SCH ×2 (10:10→13:21)
[2024-05-24] MEDS: METHYL SALICYLATE/MENTHOL OINT 30 GM TUBE TP SCH (10:11)
[2024-05-24] MEDS: MAG HYDROX/AL HYDROX/SIMETH 30 ML UNIT-DOSE CUP PO PRN (10:11)
[2024-05-24] MEDS: ASPIRIN COATED 81 MG TABLET.EC PO SCH (10:12)
[2024-05-24] MEDS: ISOSORBIDE MONONITRATE 30 MG TAB.SR.24H (FP) PO SCH (10:12)
[2024-05-24] MEDS: GABAPENTIN 300 MG CAPSULE PO SCH (10:12)
[2024-05-24] MEDS: METOPROLOL TARTRATE 50 MG TABLET (FP) PO SCH (10:12)
[2024-05-24] MEDS: PANTOPRAZOLE 40 MG TABLET PO SCH (10:12)
[2024-05-24] MEDS: LISINOPRIL 10 MG TABLET PO SCH (15:00)
[2024-05-24] MEDS: metFORMIN HCL 500 MG TABLET (FP) PO SCH (17:15)
[2024-05-24] MEDS: ATORVASTATIN CA 80 MG TABLET (FP) PO SCH (21:18)
[2024-05-25 08:36] LABS: BASO % 0.6 % (0-2.0); EOS % 0.5 % (0-4.5); HEMATOCRIT 36.5 % (32.4-45.2); HEMOGLOBIN 12.6 GM/dL (10.7-15.3); LYMPH % 24.7 % (8-40); MCH 27.6 pg (25.7-33.7); MCHC 34.4 g/dl (32.0-36.0); MEAN CELL VOLUME 80.2 fl (80-96); MEAN PLT VOLUME 8.1 fl (7.5-11.1); MONO % 10.8 % (3.8-10.2); NEUT % 63.4 % (42.8-82.8); PLATELET COUNT 291 10^3/uL (134-434); RBC 4.56 M/mm3 (3.60-5.2); RDW 12.7 % (11.6-15.6); WHITE BLOOD COUNT 7.7 K/mm3 (4.0-10.0)
[2024-05-25 08:41] LABS: POTASSIUM 3.4 mmol/L (3.5-5.1)
[2024-05-25 08:45] LABS: ALBUMIN 2.4 g/dl (3.4-5.0); BLOOD UREA NITROGEN 14.5 mg/dL (7-18)
[2024-05-25 08:47] LABS: CREATININE 0.9 mg/dL (0.55-1.3)
[2024-05-25 08:49] LABS: BILIRUBIN,TOTAL 0.9 mg/dL (0.2-1); TOT PROT 6.4 g/dl (6.4-8.2)
[2024-05-25] MEDS: POTASSIUM CHLORIDE ORAL LIQUID 20 MEQ/15 ML PO ONE (13:15)
[2024-05-25 23:11] VITALS: RESP 18
[2024-05-26 07:50] LABS: BASO % 0.5 % (0-2.0); EOS % 0.8 % (0-4.5); HEMATOCRIT 36.3 % (32.4-45.2); HEMOGLOBIN 12.4 GM/dL (10.7-15.3); LYMPH % 27.8 % (8-40); MCH 27.5 pg (25.7-33.7); MEAN CELL VOLUME 80.9 fl (80-96); MEAN PLT VOLUME 8.4 fl (7.5-11.1); MONO % 11.3 % (3.8-10.2); NEUT % 59.6 % (42.8-82.8); PLATELET COUNT 314 10^3/uL (134-434); RBC 4.49 M/mm3 (3.60-5.2); RDW 12.7 % (11.6-15.6)
[2024-05-26 07:59] LABS: POTASSIUM 3.5 mmol/L (3.5-5.1)
[2024-05-26 08:04] LABS: ALBUMIN 2.4 g/dl (3.4-5.0); BLOOD UREA NITROGEN 12.3 mg/dL (7-18)
[2024-05-26 08:07] LABS: CREATININE 0.8 mg/dL (0.55-1.3)
[2024-05-26 08:09] LABS: BILIRUBIN,TOTAL 0.9 mg/dL (0.2-1)
[2024-05-26 08:10] LABS: TOT PROT 6.3 g/dl (6.4-8.2)
[2024-05-26] MEDS: ISOSORBIDE MONONITRATE 60 MG TAB.SR.24H (FP) PO SCH (10:45)
[2024-05-26] MEDS: ACETAMINOPHEN 325 MG TABLET (FP) PO PRN (10:47)
[2024-05-26 12:12] VITALS: BP 155/82; PULSE 67; TEMP 98.2
== END 2024-05-26 17:52 | disposition home or self-care (01) ==
LOC: JER 13:52 → JERBED 17:41 → J4S 05-24 00:05
PROVIDERS: ADMIT Internal Medicine; ATTEND Internal Medicine
PROC: 3E033NZ Introduction of Analgesics, Hypnotics, Sedatives into Peripheral Vein, Percutaneous Approach (ICD-10-PCS; principal; 2024-05-23)
PROC: 3E033GC Introduction of Other Therapeutic Substance into Peripheral Vein, Percutaneous Approach (ICD-10-PCS; 2024-05-23)
PROC: 3E0337Z Introduction of Electrolytic and Water Balance Substance into Peripheral Vein, Percutaneous Approach (ICD-10-PCS; 2024-05-23)
DX: R07.9 Chest pain, unspecified (principal); I25.10 Atherosclerotic heart disease of native coronary artery without angina pectoris; I11.9 Hypertensive heart disease without heart failure; E11.9 Type 2 diabetes mellitus without complications; R11.2 Nausea with vomiting, unspecified; Z90.49 Acquired absence of other specified parts of digestive tract; Z95.1 Presence of aortocoronary bypass graft; Z90.79 Acquired absence of other genital organ(s); Z87.891 Personal history of nicotine dependence; Z88.1 Allergy status to other antibiotic agents
CPT/HCPCS: 36415; 71046-TC-FY; 80048; 80053; 82962; 83735; 84100; 84484; 85025; 85610; 85730; 93005; 93010; 93306-TC; 96361; 96365; 96367; 96375; 99285-25; G0378; J0131

== ENCOUNTER 2024-08-28 10:57 | Inpatient (IN) | payer OTHER ==
[2024-08-28 13:40] LABS: BASO % 0.6 % (0-2.0); EOS % 0.5 % (0-4.5); HEMATOCRIT 44.1 % (32.4-45.2); HEMOGLOBIN 14.7 GM/dL (10.7-15.3); LYMPH % 27.3 % (8-40); MCH 27.7 pg (25.7-33.7); MCHC 33.2 g/dl (32.0-36.0); MEAN CELL VOLUME 83.4 fl (80-96); MEAN PLT VOLUME 8.4 fl (7.5-11.1); MONO % 5.2 % (3.8-10.2); NEUT % 66.4 % (42.8-82.8); PLATELET COUNT 359 10^3/uL (134-434); RBC 5.29 M/mm3 (3.60-5.2); RDW 14.2 % (11.6-15.6); WHITE BLOOD COUNT 10.3 K/mm3 (4.0-10.0)
[2024-08-28 13:54] LABS: EPI CELLS 28 /uL (0-25.1); HYALINE CASTS 5 /uL (0-3.1); PH,URINE 5.5 (5.0-8.0); URINE APPEARANCE TURBID; URINE BILIRUBIN NEGATIVE (NEGATIVE); URINE COLOR YELLOW; URINE GLUCOSE (UA) NEGATIVE (NEGATIVE); URINE KETONE 1+ (NEGATIVE); URINE LEUK ESTERASE 3+ (NEGATIVE); URINE NITRITE NEGATIVE (NEGATIVE); URINE PROTEIN 2+ (NEGATIVE); URINE RBC 334 /uL (0-23.9); URINE WBC 14339 /uL (0-25.8)
[2024-08-28] MEDS: SODIUM CHLORIDE 500 ML IV STA (14:06)
[2024-08-28 14:32] LABS: POTASSIUM 3.5 mmol/L (3.5-5.1)
[2024-08-28 14:35] LABS: ALBUMIN 3.6 g/dl (3.4-5.0); CALCIUM 10.3 mg/dL (8.5-10.1); MAGNESIUM 1.9 mg/dL (1.8-2.4)
[2024-08-28 14:39] LABS: CREATININE 0.9 mg/dL (0.55-1.3)
[2024-08-28 14:41] LABS: BILIRUBIN,TOTAL 0.8 mg/dL (0.2-1); TOT PROT 7.6 g/dl (6.4-8.2)
[2024-08-28 14:43] LABS: BLOOD UREA NITROGEN 11.9 mg/dL (7-18)
[2024-08-28] MEDS ORDERED: CEFTRIAXONE 1 GM/50 ML BAG ONE (14:45)
[2024-08-28] MEDS: CEFTRIAXONE 1,000 MG in DEXTROSE 5%-WATER - 50 ML IVPB ONE (14:48)
[2024-08-28] MEDS ORDERED: DOCUSATE SODIUM 100 MG CAPSULE (FP) PO PRN (20:47)
[2024-08-28] MEDS ORDERED: GABAPENTIN 100 MG CAPSULE PO SCH (22:00)
[2024-08-28] MEDS: METOPROLOL TARTRATE 50 MG TABLET (FP) PO SCH (22:07)
[2024-08-28] MEDS: ATORVASTATIN CA 40 MG TABLET (FP) PO SCH (22:07)
[2024-08-28] MEDS: GABAPENTIN 300 MG CAPSULE PO SCH (22:07)
[2024-08-28] MEDS: INSULIN ASPART SLIDING SCALE (NOVOLOG) 1 VIAL SQ SCH (22:08)
[2024-08-28] MEDS: DEXTROSE 5%-0.45% SALINE 1,000 ML IV SCH (22:10)
[2024-08-28] MEDS: MELATONIN 5 MG TABLETS PO PRN (23:48)
[2024-08-29 01:30] VITALS: BMI 24.6
[2024-08-29] MEDS: metFORMIN HCL 500 MG TABLET (FP) PO SCH (06:20)
[2024-08-29] MEDS: LISINOPRIL 10 MG TABLET PO SCH (06:43)
[2024-08-29] MEDS ORDERED: LISINOPRIL 10 MG TABLET PO SCH (10:00)
[2024-08-29 10:14] LABS: BASO % 0.5 % (0-2.0); EOS % 1.4 % (0-4.5); HEMATOCRIT 37.9 % (32.4-45.2); HEMOGLOBIN 12.8 GM/dL (10.7-15.3); LYMPH % 26.2 % (8-40); MCH 28.3 pg (25.7-33.7); MCHC 33.8 g/dl (32.0-36.0); MEAN CELL VOLUME 83.8 fl (80-96); MEAN PLT VOLUME 8.5 fl (7.5-11.1); MONO % 7.3 % (3.8-10.2); NEUT % 64.6 % (42.8-82.8); PLATELET COUNT 271 10^3/uL (134-434); RBC 4.53 M/mm3 (3.60-5.2); RDW 13.9 % (11.6-15.6)
[2024-08-29] MEDS: ENOXAPARIN NA (PORCINE) 40 MG/0.4 ML DISP.SYRIN SQ SCH (10:17)
[2024-08-29] MEDS: ISOSORBIDE MONONITRATE 60 MG TAB.SR.24H (FP) PO SCH (10:18)
[2024-08-29] MEDS: PANTOPRAZOLE 40 MG TABLET PO SCH ×2 (10:18→21:21)
[2024-08-29] MEDS: ASPIRIN COATED 81 MG TABLET.EC PO SCH (10:18)
[2024-08-29 10:59] LABS: POTASSIUM 3.1 mmol/L (3.5-5.1)
[2024-08-29 11:09] LABS: CALCIUM 9.2 mg/dL (8.5-10.1)
[2024-08-29 11:10] LABS: ALBUMIN 2.9 g/dl (3.4-5.0); BLOOD UREA NITROGEN 9.1 mg/dL (7-18)
[2024-08-29 11:13] LABS: BILIRUBIN,TOTAL 0.8 mg/dL (0.2-1); CREATININE 0.8 mg/dL (0.55-1.3); TOT PROT 6.1 g/dl (6.4-8.2)
[2024-08-29] MEDS: POTASSIUM CHLORIDE ORAL LIQUID 20 MEQ/15 ML PO ONE (13:01)
[2024-08-29] MEDS: KCL 10 MEQ IVPB 10 MEQ/100 ML INFUS.BAG IVPB SCH (13:01)
[2024-08-29] MEDS: AMOXICILLIN 500 MG CAPSULE (FP) PO SCH (21:20)
[2024-08-29] MEDS: CLARITHROMYCIN 500 MG TABLET (UD) PO SCH (21:20)
[2024-08-30] MEDS ORDERED: LIDOCAINE VISCOUS 2% ORAL/TOP 15 ML UNIT-DOSE CUP ONE (11:02)
[2024-08-30] MEDS: SODIUM CHLORIDE 250 ML IV STA (11:04)
[2024-08-30] MEDS: KCL 10 MEQ IVPB 10 MEQ/100 ML INFUS.BAG IVPB SCH (11:05)
[2024-08-30 11:21] LABS: INR 1.04 (0.83-1.09); PROTHROMBIN TIME (PATIENT) 11.7 SEC (9.7-13.0)
[2024-08-30] MEDS: LIDOCAINE VISCOUS 2% ORAL/TOP 15 ML UNIT-DOSE CUP PO ONE (11:26)
[2024-08-30 11:35] LABS: BASO % 0.4 % (0-2.0); EOS % 1.4 % (0-4.5); HEMATOCRIT 35.6 % (32.4-45.2); LYMPH % 22.9 % (8-40); MCH 28.1 pg (25.7-33.7); MCHC 33.7 g/dl (32.0-36.0); MEAN CELL VOLUME 83.4 fl (80-96); MEAN PLT VOLUME 8.9 fl (7.5-11.1); MONO % 6.4 % (3.8-10.2); NEUT % 68.9 % (42.8-82.8); PLATELET COUNT 247 10^3/uL (134-434); RBC 4.27 M/mm3 (3.60-5.2); RDW 14.3 % (11.6-15.6); WHITE BLOOD COUNT 7.7 K/mm3 (4.0-10.0)
[2024-08-30 12:09] LABS: POTASSIUM 3.7 mmol/L (3.5-5.1)
[2024-08-30 12:13] LABS: ALBUMIN 2.7 g/dl (3.4-5.0); CALCIUM 8.2 mg/dL (8.5-10.1)
[2024-08-30 12:14] LABS: BLOOD UREA NITROGEN 7.3 mg/dL (7-18)
[2024-08-30 12:17] LABS: CREATININE 0.9 mg/dL (0.55-1.3)
[2024-08-30 12:18] LABS: BILIRUBIN,TOTAL 0.6 mg/dL (0.2-1); TOT PROT 5.7 g/dl (6.4-8.2)
[2024-08-31] MEDS: LACTOBACILLUS ACIDOPHILUS 1 TABLET PO SCH (09:26)
[2024-09-01 19:43] VITALS: RESP 18
[2024-09-02 08:40] VITALS: BP 142/49; PULSE 68; TEMP 98.8
== END 2024-09-02 13:30 | disposition home or self-care (01) | DRG 74 ==
LOC: JER 10:57 → JERBED 15:25 → J6S 19:56
PROVIDERS: ADMIT Internal Medicine; ATTEND Internal Medicine
DX: E11.43 Type 2 diabetes mellitus with diabetic autonomic (poly)neuropathy (principal); B37.81 Candidal esophagitis; A04.8 Other specified bacterial intestinal infections; K31.84 Gastroparesis; I10 Essential (primary) hypertension; E78.5 Hyperlipidemia, unspecified; R25.1 Tremor, unspecified; I25.10 Atherosclerotic heart disease of native coronary artery without angina pectoris; F32.A Depression, unspecified; K31.A0 Gastric intestinal metaplasia, unspecified; K21.9 Gastro-esophageal reflux disease without esophagitis; E11.42 Type 2 diabetes mellitus with diabetic polyneuropathy; R63.4 Abnormal weight loss; Z68.24 Body mass index [BMI] 24.0-24.9, adult; R68.81 Early satiety; R63.0 Anorexia; Z95.1 Presence of aortocoronary bypass graft
CPT/HCPCS: 36415; 70450-TC; 71045-TC-FY; 74177-TC; 74230-TC-FY; 76700-TC; 76830-TC; 80053; 81003; 82550; 82962; 83036; 83690; 83735; 84443; 84484; 85025; 85610; 86618; 87086; 87324; 87449; 88104; 88305-TC; 88312-TC; 88341-TC; 88342-TC; 92611-GN; 93005; 93010; 99285-25; Q9967

== ENCOUNTER 2024-09-20 09:39 | Observation (INO) | payer OTHER ==
[2024-09-20] MEDS ORDERED: ACETAMINOPHEN INJECTION 100 ML ONE (11:09)
[2024-09-20] MEDS: ACETAMINOPHEN 1000 MG/100 ML BAG IVPB ONE (11:41)
[2024-09-20 12:05] LABS: BASO % 0.6 % (0-2.0); EOS % 0.8 % (0-4.5); HEMATOCRIT 40.4 % (32.4-45.2); HEMOGLOBIN 13.9 GM/dL (10.7-15.3); LYMPH % 28.8 % (8-40); MCH 28.3 pg (25.7-33.7); MCHC 34.5 g/dl (32.0-36.0); MEAN PLT VOLUME 8.5 fl (7.5-11.1); MONO % 5.8 % (3.8-10.2); PLATELET COUNT 291 10^3/uL (134-434); RBC 4.93 M/mm3 (3.60-5.2); RDW 13.5 % (11.6-15.6); WHITE BLOOD COUNT 6.9 K/mm3 (4.0-10.0)
[2024-09-20 12:11] LABS: INR 0.94 (0.83-1.09); PROTHROMBIN TIME (PATIENT) 10.8 SEC (9.7-13.0)
[2024-09-20 12:12] LABS: ACTIVATED PTT 31.7 SECONDS (25.2-36.5)
[2024-09-20 12:25] LABS: CALCIUM 9.9 mg/dL (8.5-10.1); POTASSIUM 3.7 mmol/L (3.5-5.1)
[2024-09-20 12:26] LABS: ALBUMIN 3.6 g/dl (3.4-5.0); BLOOD UREA NITROGEN 13.6 mg/dL (7-18); MAGNESIUM 1.8 mg/dL (1.8-2.4)
[2024-09-20 12:29] LABS: CREATININE 0.8 mg/dL (0.55-1.3)
[2024-09-20 12:31] LABS: BILIRUBIN,TOTAL 1.1 mg/dL (0.2-1)
[2024-09-20 12:34] LABS: TOT PROT 7.3 g/dl (6.4-8.2)
[2024-09-20] MEDS ORDERED: LIDOCAINE 4% PATCH TP ONE (13:16)
[2024-09-20] MEDS ORDERED: KETOROLAC TROMETHAMINE 15 MG/ML VIAL ONE (13:17)
[2024-09-20] MEDS: KETOROLAC TROMETHAMINE 15 MG/ML VIAL IVPUSH ONE (13:26)
[2024-09-20] MEDS: LIDOCAINE 5% TOPICAL PATCH TP ONE (13:27)
[2024-09-20 13:46] LABS: EPI CELLS >36 /uL (0-25.1); HYALINE CASTS 1 /uL (0-3.1); URINE APPEARANCE CLOUDY; URINE BACTERIA >9,000 /uL (0-1359); URINE BILIRUBIN NEGATIVE (NEGATIVE); URINE COLOR YELLOW; URINE GLUCOSE (UA) NEGATIVE (NEGATIVE); URINE KETONE TRACE (NEGATIVE); URINE LEUK ESTERASE 3+ (NEGATIVE); URINE NITRITE NEGATIVE (NEGATIVE); URINE PROTEIN TRACE (NEGATIVE); URINE RBC 7 /uL (0-23.9); URINE UROBILINOGEN 0.2 mg/dL (0.2-1.0); URINE WBC 72 /uL (0-25.8)
[2024-09-20] MEDS ORDERED: CEFTRIAXONE 1 GM/50 ML BAG ONE (15:13)
[2024-09-20] MEDS: CEFTRIAXONE 1 GM in DEXTROSE 5%-WATER - 100 ML IVPB ONE (15:25)
[2024-09-20] MEDS ORDERED: MORPHINE SULFATE 2 MG/ML SYRINGE ONE (15:25)
[2024-09-20] MEDS: morphine CARPU-JECT 2 MG/1 ML DISP.SYRIN IVPUSH ONE (15:32)
[2024-09-20] MEDS ORDERED: DOCUSATE SODIUM 100 MG CAPSULE (FP) PO PRN (19:49)
[2024-09-20 21:04] LABS: POTASSIUM 3.4 mmol/L (3.5-5.1)
[2024-09-20 21:06] LABS: CALCIUM 9.7 mg/dL (8.5-10.1)
[2024-09-20 21:07] LABS: BLOOD UREA NITROGEN 13.4 mg/dL (7-18); MAGNESIUM 1.9 mg/dL (1.8-2.4)
[2024-09-20 21:10] LABS: CREATININE 0.9 mg/dL (0.55-1.3)
[2024-09-20] MEDS: LIDOCAINE PATCH REMOVAL MC ONE (21:25)
[2024-09-20] MEDS: KCL 10 MEQ IVPB 10 MEQ/100 ML INFUS.BAG IVPB SCH (22:04)
[2024-09-21 07:31] LABS: POTASSIUM 3.5 mmol/L (3.5-5.1)
[2024-09-21 07:33] LABS: CALCIUM 9.5 mg/dL (8.5-10.1)
[2024-09-21 07:34] LABS: BLOOD UREA NITROGEN 13.8 mg/dL (7-18)
[2024-09-21 07:38] LABS: CREATININE 0.9 mg/dL (0.55-1.3)
[2024-09-21 07:51] LABS: BASO % 0.5 % (0-2.0); EOS % 1.5 % (0-4.5); HEMATOCRIT 41.9 % (32.4-45.2); HEMOGLOBIN 14.3 GM/dL (10.7-15.3); LYMPH % 16.6 % (8-40); MCH 28.4 pg (25.7-33.7); MEAN CELL VOLUME 83.4 fl (80-96); MEAN PLT VOLUME 8.6 fl (7.5-11.1); MONO % 4.7 % (3.8-10.2); NEUT % 76.7 % (42.8-82.8); PLATELET COUNT 286 10^3/uL (134-434); RBC 5.03 M/mm3 (3.60-5.2); RDW 13.6 % (11.6-15.6); WHITE BLOOD COUNT 9.4 K/mm3 (4.0-10.0)
[2024-09-21] MEDS: CEFTRIAXONE 1 G/50 ML PREMIX 50 ML IVPB SCH (11:48)
[2024-09-21] MEDS: ISOSORBIDE MONONITRATE 60 MG TAB.SR.24H (FP) PO SCH (11:49)
[2024-09-21] MEDS: ASPIRIN COATED 81 MG TABLET.EC PO SCH (11:49)
[2024-09-21] MEDS: LACTOBACILLUS ACIDOPHILUS 1 TABLET PO SCH (11:50)
[2024-09-21] MEDS: PANTOPRAZOLE 40 MG TABLET PO SCH (11:50)
[2024-09-21] MEDS: LISINOPRIL 10 MG TABLET PO SCH (11:50)
[2024-09-21] MEDS: METOPROLOL TARTRATE 50 MG TABLET (FP) PO SCH (11:50)
[2024-09-21] MEDS: SODIUM CHLORIDE 1,000 ML IV SCH (13:36)
[2024-09-21] MEDS: LIDOCAINE 5% TOPICAL PATCH TP SCH ×2 (15:44→22:39)
[2024-09-21] MEDS ORDERED: INSULIN ASPART SLIDING SCALE (NOVOLOG) 1 VIAL SQ SCH (17:32)
[2024-09-21] MEDS: INSULIN ASPART SLIDING SCALE (NOVOLOG) 1 VIAL SQ SCH ×2 (17:45→17:46)
[2024-09-21] MEDS: GABAPENTIN 100 MG CAPSULE PO SCH (17:45)
[2024-09-21] MEDS: ATORVASTATIN CA 80 MG TABLET (FP) PO SCH (22:40)
[2024-09-21] MEDS: LIDOCAINE PATCH REMOVAL MC SCH (22:40)
[2024-09-22 08:22] LABS: EOS % 2.3 % (0-4.5); HEMATOCRIT 36.1 % (32.4-45.2); LYMPH % 26.6 % (8-40); MCHC 33.2 g/dl (32.0-36.0); MEAN CELL VOLUME 84.1 fl (80-96); MEAN PLT VOLUME 8.6 fl (7.5-11.1); MONO % 7.8 % (3.8-10.2); NEUT % 62.3 % (42.8-82.8); PLATELET COUNT 237 10^3/uL (134-434); RBC 4.29 M/mm3 (3.60-5.2); RDW 13.3 % (11.6-15.6); WHITE BLOOD COUNT 5.6 K/mm3 (4.0-10.0)
[2024-09-22 08:38] LABS: POTASSIUM 3.3 mmol/L (3.5-5.1)
[2024-09-22 08:41] LABS: BLOOD UREA NITROGEN 14.3 mg/dL (7-18); CALCIUM 8.9 mg/dL (8.5-10.1)
[2024-09-22 08:44] LABS: CREATININE 0.7 mg/dL (0.55-1.3)
[2024-09-22 08:46] LABS: BILIRUBIN,TOTAL 0.8 mg/dL (0.2-1); TOT PROT 5.8 g/dl (6.4-8.2)
[2024-09-22 08:48] LABS: ALBUMIN 2.8 g/dl (3.4-5.0)
[2024-09-22] MEDS: ENOXAPARIN NA (PORCINE) 40 MG/0.4 ML DISP.SYRIN SQ SCH (09:45)
[2024-09-22] MEDS: LIDOCAINE PATCH REMOVAL MC SCH (09:53)
[2024-09-22 12:28] VITALS: BMI 20.2
[2024-09-22] MEDS: FUROSEMIDE 40 MG TABLET (FP) PO ONE (17:42)
[2024-09-22] MEDS: POTASSIUM CHLORIDE TABS 20 MEQ TABLET.ER (FP) PO SCH (17:42)
[2024-09-22] MEDS: ACETAMINOPHEN 325 MG TABLET (FP) PO PRN (21:52)
[2024-09-23 08:25] LABS: EOS % 2.5 % (0-4.5); HEMATOCRIT 38.1 % (32.4-45.2); LYMPH % 28.7 % (8-40); MCH 28.2 pg (25.7-33.7); MCHC 34.1 g/dl (32.0-36.0); MEAN CELL VOLUME 82.8 fl (80-96); MEAN PLT VOLUME 8.6 fl (7.5-11.1); NEUT % 58.8 % (42.8-82.8); PLATELET COUNT 260 10^3/uL (134-434); RDW 13.6 % (11.6-15.6); WHITE BLOOD COUNT 5.8 K/mm3 (4.0-10.0)
[2024-09-23 08:57] LABS: POTASSIUM 3.9 mmol/L (3.5-5.1)
[2024-09-23 09:11] LABS: CALCIUM 9.2 mg/dL (8.5-10.1)
[2024-09-23 09:12] LABS: ALBUMIN 3.2 g/dl (3.4-5.0); BLOOD UREA NITROGEN 11.9 mg/dL (7-18)
[2024-09-23 09:15] LABS: BILIRUBIN,TOTAL 0.7 mg/dL (0.2-1); CREATININE 0.7 mg/dL (0.55-1.3); TOT PROT 6.6 g/dl (6.4-8.2)
[2024-09-24 08:36] LABS: BASO % 0.6 % (0-2.0); EOS % 2.2 % (0-4.5); HEMATOCRIT 37.7 % (32.4-45.2); HEMOGLOBIN 12.9 GM/dL (10.7-15.3); LYMPH % 35.3 % (8-40); MCH 28.1 pg (25.7-33.7); MCHC 34.3 g/dl (32.0-36.0); MEAN CELL VOLUME 82.1 fl (80-96); MEAN PLT VOLUME 8.7 fl (7.5-11.1); NEUT % 52.9 % (42.8-82.8); PLATELET COUNT 259 10^3/uL (134-434); RBC 4.59 M/mm3 (3.60-5.2); RDW 13.6 % (11.6-15.6); WHITE BLOOD COUNT 5.7 K/mm3 (4.0-10.0)
[2024-09-24 09:11] LABS: POTASSIUM 3.5 mmol/L (3.5-5.1)
[2024-09-24 09:13] LABS: BLOOD UREA NITROGEN 12.5 mg/dL (7-18); CALCIUM 8.8 mg/dL (8.5-10.1)
[2024-09-24 09:17] LABS: CREATININE 0.9 mg/dL (0.55-1.3)
[2024-09-24 09:18] LABS: BILIRUBIN,TOTAL 0.5 mg/dL (0.2-1); TOT PROT 6.2 g/dl (6.4-8.2)
[2024-09-24 14:24] VITALS: BP 131/74; PULSE 65; RESP 18; TEMP 98.4
[2024-09-24] MEDS: FLUCONAZOLE 100 MG TABLET (UD) PO SCH (14:39)
[2024-09-25] MEDS ORDERED: FLUCONAZOLE 100 MG TABLET (UD) PO SCH (10:00)
== END 2024-09-24 16:33 | disposition home or self-care (01) ==
LOC: JER 09:39 → JERBED 16:49 → J7W 19:45
PROVIDERS: ADMIT Internal Medicine
PROC: 3E03329 Introduction of Other Anti-infective into Peripheral Vein, Percutaneous Approach (ICD-10-PCS; principal; 2024-09-20)
PROC: 3E033NZ Introduction of Analgesics, Hypnotics, Sedatives into Peripheral Vein, Percutaneous Approach (ICD-10-PCS; 2024-09-20)
PROC: 3E023GC Introduction of Other Therapeutic Substance into Muscle, Percutaneous Approach (ICD-10-PCS; 2024-09-20)
PROC: 3E013VG Introduction of Insulin into Subcutaneous Tissue, Percutaneous Approach (ICD-10-PCS; 2024-09-20)
PROC: 3E0333Z Introduction of Anti-inflammatory into Peripheral Vein, Percutaneous Approach (ICD-10-PCS; 2024-09-20)
PROC: 3E0337Z Introduction of Electrolytic and Water Balance Substance into Peripheral Vein, Percutaneous Approach (ICD-10-PCS; 2024-09-20)
DX: N39.0 Urinary tract infection, site not specified (principal); N10 Acute pyelonephritis; I11.9 Hypertensive heart disease without heart failure; E11.43 Type 2 diabetes mellitus with diabetic autonomic (poly)neuropathy; I20.9 Angina pectoris, unspecified; K31.84 Gastroparesis; N20.0 Calculus of kidney; E78.5 Hyperlipidemia, unspecified; B37.81 Candidal esophagitis; Z87.891 Personal history of nicotine dependence; Z88.1 Allergy status to other antibiotic agents; E11.40 Type 2 diabetes mellitus with diabetic neuropathy, unspecified; Z95.5 Presence of coronary angioplasty implant and graft; R07.89 Other chest pain
CPT/HCPCS: 36415; 71045-TC-FY; 74176-TC; 80048; 80053; 81003; 82962; 83036; 83735; 84484; 85025; 85379; 85610; 85730; 87086; 87186; 93005; 93010; 96361; 96365; 96366; 96367; 96372; 96375; 97116-GP; 97161-GP; 99285-25; G0378; J0131

== ENCOUNTER 2024-10-01 08:42 | Emergency (ER) | payer OTHER ==
[2024-10-01 09:07] VITALS: BP 194/110; RESP 18; TEMP 98.4; BMI 21.9
[2024-10-01 09:26] LABS: PH,URINE 8.5 (5.0-8.0); URINE APPEARANCE CLEAR; URINE BILIRUBIN NEGATIVE (NEGATIVE); URINE COLOR YELLOW; URINE GLUCOSE (UA) 3+ (NEGATIVE); URINE KETONE NEGATIVE (NEGATIVE); URINE LEUK ESTERASE NEGATIVE (NEGATIVE); URINE NITRITE NEGATIVE (NEGATIVE); URINE PROTEIN TRACE (NEGATIVE); URINE UROBILINOGEN 0.2 mg/dL (0.2-1.0)
[2024-10-01] MEDS ORDERED: ACETAMINOPHEN INJECTION 100 ML ONE (09:58)
[2024-10-01] MEDS ORDERED: KETOROLAC TROMETHAMINE 15 MG/ML VIAL ONE (09:58)
[2024-10-01] MEDS: KETOROLAC TROMETHAMINE 15 MG/ML VIAL IM ONE (10:32)
[2024-10-01] MEDS: ACETAMINOPHEN 1000 MG/100 ML BAG IVPB ONE (10:32)
[2024-10-01] MEDS ORDERED: LABETALOL HCL 20 MG/4 ML VIAL ONE (10:36)
[2024-10-01 10:46] VITALS: PULSE 66
[2024-10-01] MEDS: LABETALOL HCL 5 MG/1 ML (100MG/20 ML VIAL) IVPUSH ONE (10:51)
[2024-10-01 11:06] LABS: BASO % 0.7 % (0-2.0); EOS % 0.8 % (0-4.5); HEMATOCRIT 43.3 % (32.4-45.2); HEMOGLOBIN 14.7 GM/dL (10.7-15.3); LYMPH % 29.2 % (8-40); MCH 28.3 pg (25.7-33.7); MEAN CELL VOLUME 83.1 fl (80-96); MEAN PLT VOLUME 8.8 fl (7.5-11.1); MONO % 4.4 % (3.8-10.2); NEUT % 64.9 % (42.8-82.8); PLATELET COUNT 375 10^3/uL (134-434); RDW 13.8 % (11.6-15.6); WHITE BLOOD COUNT 11.4 K/mm3 (4.0-10.0)
[2024-10-01 11:08] LABS: INR 0.89 (0.83-1.09); PROTHROMBIN TIME (PATIENT) 10.1 SEC (9.7-13.0)
[2024-10-01 11:11] LABS: ACTIVATED PTT 37.1 SECONDS (25.2-36.5)
[2024-10-01 11:13] LABS: POTASSIUM 4.7 mmol/L (3.5-5.1)
[2024-10-01 11:15] LABS: BLOOD UREA NITROGEN 23.8 mg/dL (7-18)
[2024-10-01 11:17] LABS: ALBUMIN 4.2 g/dl (3.4-5.0); CALCIUM 10.4 mg/dL (8.5-10.1)
[2024-10-01 11:20] LABS: BILIRUBIN,TOTAL 0.7 mg/dL (0.2-1)
[2024-10-01 11:24] LABS: TOT PROT 8.3 g/dl (6.4-8.2)
[2024-10-01] MEDS ORDERED: MORPHINE SULFATE 2 MG/ML SYRINGE ONE (11:43)
[2024-10-01] MEDS: morphine CARPU-JECT 2 MG/1 ML DISP.SYRIN IVPUSH ONE (11:51)
== END 2024-10-01 16:21 | disposition home or self-care (01) ==
LOC: JER 08:42
PROC: 3E033NZ Introduction of Analgesics, Hypnotics, Sedatives into Peripheral Vein, Percutaneous Approach (ICD-10-PCS; principal; 2024-10-01)
PROC: 3E033GC Introduction of Other Therapeutic Substance into Peripheral Vein, Percutaneous Approach (ICD-10-PCS; 2024-10-01)
PROC: 3E033NZ Introduction of Analgesics, Hypnotics, Sedatives into Peripheral Vein, Percutaneous Approach (ICD-10-PCS; 2024-10-01)
PROC: 3E0133Z Introduction of Anti-inflammatory into Subcutaneous Tissue, Percutaneous Approach (ICD-10-PCS; 2024-10-01)
DX: M54.6 Pain in thoracic spine (principal); G89.29 Other chronic pain; D17.1 Benign lipomatous neoplasm of skin and subcutaneous tissue of trunk
CPT/HCPCS: 36415; 71045-TC-FY; 71275-TC; 74174-TC; 80053; 81003; 84484; 85025; 85610; 85730; 86850; 86900; 86901; 87086; 93005; 93010; 96372; 96374; 96375; 99285-25; J0131; Q9967